=== PATIENT | female | born 1935 | race Caucasian/White ===

== ENCOUNTER 2021-04-05 00:53 | Inpatient (IN) | payer MEDICARE, OTHER ==
[2021-04-05] VITALS (11 sets, daily range): BP systolic 125–147; BP diastolic 58–95
[~2021-04-05] VITALS: Ht 152.4 cm; Wt 92.2 kg
[~2021-04-05 00:53] MED LIST: ATOR20TA PO; FURO40TA4 PO; GABA300C18 PO; IBUP-1007 PO; IBUP-1739 PO; INSU100I13 SQ; LOSA-73 PO; METF10007 PO; OMEP20CA16 PO; PIOG30TA41 PO; TIZA-75 PO
[2021-04-05] MEDS ORDERED: FURO-68 PO (01:20)
[2021-04-05] MEDS ORDERED: MEMA10TA PO (01:26)
[2021-04-05] MEDS ORDERED: ATOR40TA59 PO (01:26)
[2021-04-05] MEDS ORDERED: CHOL40002 PO (01:26)
[2021-04-05] MEDS ORDERED: APIX2.5T PO (01:26)
[2021-04-05] MEDS ORDERED: ACET325T21 PO (01:26)
[2021-04-05] MEDS ORDERED: CALC500T31 PO (01:29)
[2021-04-05] MEDS ORDERED: METH5TAB30 PO (01:29)
[2021-04-05] MEDS ORDERED: SITA100T PO (01:29)
[2021-04-05] MEDS ORDERED: DILT240C33 PO (01:29)
[2021-04-05] MEDS ORDERED: IBAN150T20 PO (01:30)
--- NOTE | 2021-04-05 08:52 | PDOC1 ---
History and Physical Date of Service: DOS: DATE: 04/05/21 TIME: 08:51 Chief Complaint: Chief Complain: Shortness of breath History of Present Illness: HPI: History obtained from discussion with the patient and also chart review: 86-year-old female who is brought in by her son mainly because of shortness of breath since waking up this morning. Patient has been feeling that she cannot get enough deep breath for the past week. Patient was actually hospitalized 1 month ago for pneumonia. Patient has not been feeling good in the last month or so. Patient is a poor historian and likely has some dementia and is unsure why she was brought to the hospital. Currently denies any fevers, cough, chest pain or abdominal pain or dysuria or hematuria or diarrhea. Past Medical/Surgical History: PMH/PSH: Past medical history: Atrial fibrillation, CAD, diabetes mellitus type 2, GERD, dyslipidemia, hypertension, pacemaker placement Past surgical history: Hysterectomy Allergies: Allergies: Coded Allergies: influenza virus vacc,specific (Verified Allergy, Intermediate, Rash, 06/02/14) INJECTION SITE AND ARM HAD RED RASH AND SWELLING Sulfa (Sulfonamide Antibiotics) (Verified Adverse Reaction, Intermediate, Nausea and Vomiting, 06/02/14) codeine (Verified Adverse Reaction, Intermediate, Nausea and Vomiting, 06/02/14) Family History: Family History: Reviewed with no relevant findings in the chart Social History: Social History: Former smoker quit 1 year ago Current Medications: Current Medications Active Scripts Active Reported Ibandronate Sodium 150 Mg Tablet 1 Tab PO QMONTH 30 Days Methimazole 5 Mg Tablet 5 Mg PO DAILY Januvia (Sitagliptin Phosphate) 100 Mg Tablet 1 Tab PO DAILY Diltiazem 24Hr Cd (Diltiazem HCl) 240 Mg Cap.er.24h 240 Mg PO DAILY Calcium Carbonate 500 Mg Tablet 1,250 Mg PO DAILY 30 Days Namenda (Memantine Hcl) 10 Mg Tablet 5 Mg PO BID Eliquis (Apixaban) 2.5 Mg Tablet 2.5 Mg PO BID Atorvastatin Calcium 40 Mg Tablet 1 Tab PO DAILY Thera-D (Cholecalciferol (Vitamin D3)) 100 Mcg Tablet 2,000 Units PO DAILY Acetaminophen 325 Mg Tablet 2 Tab PO PRN Q4-6HRS PRN 24 Days Lasix (Furosemide) 40 Mg Tablet 40 Mg PO BID Omeprazole 20 Mg Capsule.dr 20 Mg PO DAILY Gabapentin (Gabapentin) 300 Mg Capsule 300 Mg PO BID ROS: Review of Systems Review of System REVIEW OF SYSTEMS: GENERAL: Denies weakness SKIN: No bruising, hair changes or rashes. EYES: No blurred, double or loss of vision. NOSE AND THROAT: No history of nosebleeds, hoarseness or sore throat. HEART: No history of palpitations, chest pain or shortness of breath on exertion. LUNGS: Denies cough, hemoptysis, wheezing or shortness of breath. GASTROINTESTINAL: Denies changes in appetite, nausea, vomiting, diarrhea or constipation. GENITOURINARY: No history of frequency, urgency, hesitancy or nocturia. NEUROLOGIC: Denies history of numbness, tingling, or tremor. PSYCHIATRIC: No history of panic, anxiety or depression. ENDOCRINE: No history of heat or cold intolerance, polyuria or polydipsia. EXTREMITIES: Denies joint pain, pain on walking or stiffness. Physical Exam: Vital Signs: Vital Signs Date Time Temp Pulse Resp B/P (MAP) Pulse Ox O2 Delivery O2 Flow Rate FiO2 04/05/21 07:57 98.0 137 18 147/78 (101) 93 Nasal Cannula 2.0 98.0 Physcial Exam: General: Well developed, well nourished, no acute distress, well appearing HEENT: Pupils equally round and reactive to light, EOMI, no discharge, normal conjunctiva Neck: Supple, no nuchal rigidity, no JVD, trachea midline, no tenderness Cardiac: RRR, no murmurs, no gallops, no rubs Chest/Lungs: CTAB, no wheeze, no rhonchi, no crackles Abdomen: soft, non-distended, no guarding, no peritoneal signs, non-tender Back: No tenderness Extremities: no edema, pulses intact, non-tender,capillary refill <3 sec bilateral upper and lower extremities, Neuro: Alert and oriented x 4, no focal deficits, normal speech Labs: Labs: Recent labs reviewed Images: Images Chest x-ray shows diffuse lower lobe infiltrate and small pleural effusions Assessment/Plan Assessment/Plan Acute lower lobe pneumonia, possible gram-negative organisms Atrial fibrillation, currently in RVR continue with p.o. diltiazem Failure to thrive Morbid obesity Diabetes mellitus type 2 GERD Hypertension Admit to hospitalist service for further management Continue empiric IV antibiotics Pending Legionella urine antigen and MRSA screen Pending TTE Pending TSH Continue telemetry monitoring PT OT modalities Eliquis for DVT prophylaxis Protonix GI prophylaxis ADA diet CODE STATUS full Discussed with RN and SW Disposition inpatient management as above DPOA: Son Justifications for Admission Other Justification CASE CROOKS MD Apr 05, 2021 08:52
--- NOTE | 2021-04-05 11:32 | NUR ---
SS following for discharge planning. SS reviewed pt chart and discussed with pt RN. Pt is from home with son and is currently requiring oxygen at two liters nasal canula. COVID19 test pending. Pt has home oxygen. Per family, pt is W/C bound at home. Wound care consulted. SS will continue to follow for discharge planning. Addendum: 04/05/21 at 1341 by HERMINIA BERNAL SS Pt current on services with [facility].
[2021-04-05] MEDS ORDERED: DEXTROSE 50% 25 GM / 50ML DISP.SYRIN. IV PRN ×2 (12:30→12:45)
[2021-04-05] MEDS ORDERED: PROCHLORPERAZINE 10 MG/2 ML VIAL. IV PRN (12:45)
[2021-04-05] MEDS ORDERED: ONDANSETRON PF 4 MG/2 ML VIAL. IVP PRN (12:45)
[2021-04-05] MEDS ORDERED: LORazepam 0.5 MG TABLET PO PRN (12:45)
[2021-04-05] MEDS ORDERED: diphenhydrAMINE HCL 25 MG CAPSULE PO PRN ×2 (12:45)
[2021-04-05] MEDS ORDERED: diphenhydrAMINE 50 MG/ML VIAL IVP PRN (12:45)
[2021-04-05] MEDS ORDERED: ZOLPIDEM 5 MG TABLET. PO PRN (12:45)
[2021-04-05] MEDS ORDERED: SENNOSIDES 8.6 MG TABLET PO PRN (12:45)
[2021-04-05] MEDS ORDERED: ACETAMINOPHEN 325 MG TABLET. PO PRN (12:45)
[2021-04-05] MEDS ORDERED: DOCUSATE SODIUM 100 MG CAPSULE. PO PRN (12:45)
[2021-04-05] MEDS: cefTRIAXone IV Push 1 GM VIAL. IVP SCH (13:39)
[2021-04-05] MEDS ORDERED: FUROSEMIDE 40 MG/4 ML VIAL. IVP ONE (14:45)
[2021-04-05] MEDS: dilTIAZem HCL 125 MG in IV DEXTROSE 5% 100ML 100 ML IV PRN (17:10)
[2021-04-05] MEDS: INSULIN LISPRO 300 UNITS/3 ML VIAL. SQ SCH (17:26)
[2021-04-05] MEDS: APIXABAN 2.5 MG TABLET. PO SCH (20:51)
[2021-04-05] MEDS: GABAPENTIN 300 MG CAPSULE. PO SCH (20:51)
[2021-04-05] MEDS: DOXYCYCLINE HYCLATE 100 MG TABLET PO SCH (20:51)
[2021-04-06] VITALS (12 sets, daily range): BP systolic 104–148; BP diastolic 59–105
[2021-04-06] MEDS: dilTIAZem HCL 125 MG in IV DEXTROSE 5% 100ML 100 ML IV PRN ×2 (02:10→13:07)
[2021-04-06 04:28] LABS: BASO % 0 % (0-3); EOS % 0 % (0-3); HEMATOCRIT 33.4 % (36.0-47.0); HEMOGLOBIN 10.6 g/dL (12.0-15.5); LYMPH # 0.8 x10^3/uL (1.0-4.8); LYMPH % 8 % (24-48); MEAN CORPUSCULAR HEMOGLOBIN 29 pg (25-35); MEAN CORPUSCULAR HGB CONC 32 g/dL (31-37); MEAN CORPUSCULAR VOLUME 91 fL (79-100); MONO # 0.6 x10^3/uL (0.0-1.1); MONO % 7 % (0-9); NEUT # 8.2 x10^3/uL (1.8-7.7); NEUT % 85 % (31-73); PLATELET COUNT 255 x10^3/uL (140-400); RED BLOOD COUNT 3.67 x10^6/uL (3.50-5.40); RED CELL DISTRIBUTION WIDTH 14.5 % (11.5-14.5); WHITE BLOOD COUNT 9.6 x10^3/uL (4.0-11.0)
[2021-04-06 04:41] LABS: CALCIUM 8.8 mg/dL (8.5-10.1); CREATININE 1.6 mg/dL (0.6-1.0); GFR 30.6; PHOSPHORUS 3.8 mg/dL (2.6-4.7); POTASSIUM 4.3 mmol/L (3.5-5.1)
[2021-04-06] MEDS: PANTOPRAZOLE 40 MG TABLET.DR. PO SCH (05:40)
[2021-04-06] MEDS: CALCIUM CARBONATE 500 MG TABLET PO SCH (08:29)
[2021-04-06] MEDS: DOXYCYCLINE HYCLATE 100 MG TABLET PO SCH ×2 (08:29→21:16)
[2021-04-06] MEDS: GABAPENTIN 300 MG CAPSULE. PO SCH ×2 (08:29→21:16)
[2021-04-06] MEDS: CHOLECALCIFEROL (VITAMIN D3) 1,000 UNIT TABLET PO SCH (08:29)
[2021-04-06] MEDS: APIXABAN 2.5 MG TABLET. PO SCH ×2 (08:30→21:16)
[2021-04-06] MEDS: INSULIN LISPRO 300 UNITS/3 ML VIAL. SQ SCH ×3 (08:36→17:00)
[2021-04-06] MEDS ORDERED: ATORVASTATIN CALCIUM 40 MG TABLET. PO SCH (09:00)
--- NOTE | 2021-04-06 09:31 | PDOC2 ---
MONICO BENAVIDEZ CHIEF DATA OFFICER 04/06/21 0931: CARDIAC CONSULT DATE OF CONSULT Date of Consult DATE: 04/06/21 TIME: 09:24 REASON FOR CONSULT Reason for Consult: AFIB REFERRING PHYSICIAN Referring Physician: Dr. Ayala SOURCE Source: Chart review, Patient HISTORY OF PRESENT ILLNESS HISTORY OF PRESENT ILLNESS This is an 86 yo female who presented to [facility] secondary to shortness of breath. Was noted in AFIB with RVR, which prompted this consult. Patient unable to tell me what brought her to the hospital. Presently denies any chest pain, palpitations. Is mildly short of breath. No dizziness or diaphoresis. PAST MEDICAL HISTORY Cardiovascular: AFIB, HTN, Hyperlipidemia, Other (SSS) GI: GERD Musculoskeletal: Osteoarthritis Endocrine: Diabetes PAST SURGICAL HISTORY Past Surgical History: Pacemaker, Cholecystectomy, Cataract Removal, Tonsillectomy, Hysterectomy FAMILY HISTORY Family History: Heart Disease SOCIAL HISTORY Smoke: No ALCOHOL: none Drugs: None CURRENT MEDICATIONS CURRENT MEDICATIONS Current Medications Medications (Trade) Dose Ordered Sig/Elena Route PRN Reason Start Time Stop Time Status Last Admin Dose Admin Apixaban (Eliquis) 2.5 mg BID PO 04/05/21 21:00 04/06/21 08:30 Atorvastatin Calcium (Lipitor) 40 mg DAILY PO 04/06/21 09:00 04/06/21 08:29 Calcium Carbonate/ Glycine (Oscal) 1,250 mg DAILY PO 04/06/21 09:00 04/06/21 08:29 Diltiazem HCl (Cardizem 24hr Cd) 240 mg DAILY PO 04/05/21 15:00 04/05/21 14:40 Gabapentin (Neurontin) 300 mg BID PO 04/05/21 21:00 04/06/21 08:29 Vitamin D (Vitamin D3) 2,000 unit DAILY PO 04/06/21 09:00 04/06/21 08:29 Pantoprazole Sodium (Protonix) 40 mg DAILYAC PO 04/06/21 07:30 04/06/21 05:40 Insulin Human Lispro (HumaLOG) 0-5 UNITS TIDWMEALS SQ 04/05/21 17:00 04/06/21 08:36 Ceftriaxone Sodium (Rocephin) 1 gm Q24H IVP 04/05/21 13:00 04/05/21 13:39 Doxycycline Hyclate (Vibra-Tab) 100 mg BID PO 04/05/21 21:00 04/06/21 08:29 Furosemide (Lasix) 40 mg 1X ONCE IVP 04/05/21 14:45 04/05/21 14:46 DC 04/05/21 14:42 Diltiazem HCl 125 mg/Dextrose 125 ml @ 5 mls/hr CONT PRN IV PER PROTOCOL 04/05/21 17:00 04/06/21 02:10 ALLERGIES ALLERGIES: Coded Allergies: influenza virus vacc,specific (Verified Allergy, Intermediate, Rash, 06/02/14) INJECTION SITE AND ARM HAD RED RASH AND SWELLING Sulfa (Sulfonamide Antibiotics) (Verified Adverse Reaction, Intermediate, Nausea and Vomiting, 06/02/14) codeine (Verified Adverse Reaction, Intermediate, Nausea and Vomiting, 06/02/14) ROS Review of System 14 point ROS conducted with pertinent positives noted above in HPI PHYSICAL EXAM General: Alert, Cooperative, No acute distress, Other (oriented to person and place ) Lungs: Other (diminished bases) Heart: Other (AFIB) Abdomen: Soft, Other (obese) Extremities: Other (2+ bilateral LE edema ) Skin: No significant lesion Neuro: Normal speech, Sensation intact Psych/Mental Status: Mood NL, Other (confused ) MUSCULOSKELETAL: Osteoarthritic changes both hands VITALS/I&O VITALS/I&O: Vital Signs Date Time Temp Pulse Resp B/P (MAP) Pulse Ox O2 Delivery O2 Flow Rate FiO2 04/06/21 06:23 114 120/65 (83) 04/06/21 02:59 97.7 18 92 Nasal Cannula 2.0 97.7 I & O 04/05/21 04/05/21 04/06/21 15:00 23:00 07:00 Intake Total 400 ml 100 ml 220 ml Output Total 1200 ml 300 ml Balance 400 ml -1100 ml -80 ml LABS Lab: Laboratory Tests Test 04/05/21 11:37 04/05/21 13:33 04/05/21 16:35 04/05/21 20:49 Glucose (Fingerstick) 222 mg/dL (70-99) H 202 mg/dL (70-99) H 190 mg/dL (70-99) H Thyroid Stimulating Hormone (TSH) 0.592 uIU/mL (0.358-3.74) Test 04/06/21 03:05 04/06/21 07:28 White Blood Count 9.6 x10^3/uL (4.0-11.0) Red Blood Count 3.67 x10^6/uL (3.50-5.40) Hemoglobin 10.6 g/dL (12.0-15.5) L Hematocrit 33.4 % (36.0-47.0) L Mean Corpuscular Volume 91 fL (79-100) Mean Corpuscular Hemoglobin 29 pg (25-35) Mean Corpuscular Hemoglobin Concent 32 g/dL (31-37) Red Cell Distribution Width 14.5 % (11.5-14.5) Platelet Count 255 x10^3/uL (140-400) Neutrophils (%) (Auto) 85 % (31-73) H Lymphocytes (%) (Auto) 8 % (24-48) L Monocytes (%) (Auto) 7 % (0-9) Eosinophils (%) (Auto) 0 % (0-3) Basophils (%) (Auto) 0 % (0-3) Neutrophils # (Auto) 8.2 x10^3/uL (1.8-7.7) H Lymphocytes # (Auto) 0.8 x10^3/uL (1.0-4.8) L Monocytes # (Auto) 0.6 x10^3/uL (0.0-1.1) Eosinophils # (Auto) 0.0 x10^3/uL (0.0-0.7) Basophils # (Auto) 0.0 x10^3/uL (0.0-0.2) Sodium Level 139 mmol/L (136-145) Potassium Level 4.3 mmol/L (3.5-5.1) Chloride Level 99 mmol/L (98-107) Carbon Dioxide Level 33 mmol/L (21-32) H Anion Gap 7 (6-14) Blood Urea Nitrogen 41 mg/dL (7-20) H Creatinine 1.6 mg/dL (0.6-1.0) H Estimated GFR (Cockcroft-Gault) 30.6 Glucose Level 196 mg/dL (70-99) H Calcium Level 8.8 mg/dL (8.5-10.1) Phosphorus Level 3.8 mg/dL (2.6-4.7) Magnesium Level 2.0 mg/dL (1.8-2.4) Glucose (Fingerstick) 197 mg/dL (70-99) H Laboratory Tests 04/06/21 03:05 Laboratory Tests 04/06/21 03:05 ASSESSMENT/PLAN ASSESSMENT/PLAN 1. Acute respiratory failure with CHF, RVR 2. Acute on chronic probable diastolic CHF 3. PAFIB with RVR; on Cardizem gtt for rate control and Eliquis for stroke prophylaxis. Follows with [facility] cardiology. 4. SSS s/p PPM (Medtronic). intermittent v-pacing 6. Hypertension; controlled 7. Hyperlipidemia; statin 8. MACK on CKD 9. Diabetes, II 10. Hyperthyroidism; on methimazole. 12. Dementia Recommendations Metoprolol IV x1 now Resume oral Cardizem gtt Eliquis for stroke prophylaxis Diuresis with IV Lasix. Monitor renal function closely YOU MOSES MD 04/06/21 4929: CARDIAC CONSULT ASSESSMENT/PLAN ASSESSMENT/PLAN Patient seen and examined She reports feeling better today. I agree with our nurse practitioners assessment and plan. Acute respiratory failure with CHF, RVR Acute on chronic probable diastolic CHF. Continuing Lasix treatment. Monitoring renal function. PAFIB with RVR; on Cardizem gtt for rate control and Eliquis for stroke prophylaxis. Follows with [facility] cardiology. SSS s/p PPM (Medtronic). intermittent v-pacing Hypertension; controlled Hyperlipidemia; statin MACK on CKD. Monitoring lab. Diabetes, II Hyperthyroidism; on methimazole. Dementia MONICO BENAVIDEZ APRN Apr 06, 2021 09:31 YOU MOSES MD Apr 06, 2021 16:49
--- NOTE | 2021-04-06 10:33 | PDOC ---
[employer] PROGRESS NOTE Date of Service DOS: DATE: 04/06/21 TIME: 10:32 Chief Complaint Chief Complaint Acute respiratory failure with CHF, RVR 2. Acute on chronic probable diastolic CHF 3. PAFIB with RVR; on Cardizem gtt for rate control. Eliquis for stroke prophylaxis. Follows with [facility] cardiology. 4. SSS s/p PPM (Medtronic). intermittent v-pacing 6. Hypertension; controlled 7. Hyperlipidemia; statin 8. MACK on CKD 9. Diabetes, II 10. Hyperthyroidism; on methimazole. 12. Dementia History of Present Illness History of Present Illness cont current Vitals/I&O Vitals/I&O: Vital Signs Date Time Temp Pulse Resp B/P (MAP) Pulse Ox O2 Delivery O2 Flow Rate FiO2 04/06/21 08:00 Nasal Cannula 2.0 04/06/21 06:23 114 120/65 (83) 04/06/21 02:59 97.7 18 92 97.7 I & O 04/05/21 04/05/21 04/06/21 15:00 23:00 07:00 Intake Total 400 ml 100 ml 220 ml Output Total 1200 ml 300 ml Balance 400 ml -1100 ml -80 ml Physical Exam General: Alert Heart: Normal S1, Normal S2 Extremities: No clubbing Labs Labs: Laboratory Tests Test 04/05/21 11:37 04/05/21 13:33 04/05/21 16:35 04/05/21 20:49 Glucose (Fingerstick) 222 mg/dL (70-99) 202 mg/dL (70-99) 190 mg/dL (70-99) Thyroid Stimulating Hormone (TSH) 0.592 uIU/mL (0.358-3.74) Test 04/06/21 03:05 04/06/21 07:28 White Blood Count 9.6 x10^3/uL (4.0-11.0) Red Blood Count 3.67 x10^6/uL (3.50-5.40) Hemoglobin 10.6 g/dL (12.0-15.5) Hematocrit 33.4 % (36.0-47.0) Mean Corpuscular Volume 91 fL (79-100) Mean Corpuscular Hemoglobin 29 pg (25-35) Mean Corpuscular Hemoglobin Concent 32 g/dL (31-37) Red Cell Distribution Width 14.5 % (11.5-14.5) Platelet Count 255 x10^3/uL (140-400) Neutrophils (%) (Auto) 85 % (31-73) Lymphocytes (%) (Auto) 8 % (24-48) Monocytes (%) (Auto) 7 % (0-9) Eosinophils (%) (Auto) 0 % (0-3) Basophils (%) (Auto) 0 % (0-3) Neutrophils # (Auto) 8.2 x10^3/uL (1.8-7.7) Lymphocytes # (Auto) 0.8 x10^3/uL (1.0-4.8) Monocytes # (Auto) 0.6 x10^3/uL (0.0-1.1) Eosinophils # (Auto) 0.0 x10^3/uL (0.0-0.7) Basophils # (Auto) 0.0 x10^3/uL (0.0-0.2) Sodium Level 139 mmol/L (136-145) Potassium Level 4.3 mmol/L (3.5-5.1) Chloride Level 99 mmol/L (98-107) Carbon Dioxide Level 33 mmol/L (21-32) Anion Gap 7 (6-14) Blood Urea Nitrogen 41 mg/dL (7-20) Creatinine 1.6 mg/dL (0.6-1.0) Estimated GFR (Cockcroft-Gault) 30.6 Glucose Level 196 mg/dL (70-99) Calcium Level 8.8 mg/dL (8.5-10.1) Phosphorus Level 3.8 mg/dL (2.6-4.7) Magnesium Level 2.0 mg/dL (1.8-2.4) Glucose (Fingerstick) 197 mg/dL (70-99) Comment Review of Relevant I have reviewed the following items ian (where applicable) has been applied. Medications: Current Medications Medications (Trade) Dose Ordered Sig/Elena Route PRN Reason Start Time Stop Time Status Last Admin Dose Admin Apixaban (Eliquis) 2.5 mg BID PO 04/05/21 21:00 04/06/21 08:30 Atorvastatin Calcium (Lipitor) 40 mg DAILY PO 04/06/21 09:00 04/06/21 08:29 Calcium Carbonate/ Glycine (Oscal) 1,250 mg DAILY PO 04/06/21 09:00 04/06/21 08:29 Diltiazem HCl (Cardizem 24hr Cd) 240 mg DAILY PO 04/05/21 15:00 04/05/21 14:40 Gabapentin (Neurontin) 300 mg BID PO 04/05/21 21:00 04/06/21 08:29 Vitamin D (Vitamin D3) 2,000 unit DAILY PO 04/06/21 09:00 04/06/21 08:29 Pantoprazole Sodium (Protonix) 40 mg DAILYAC PO 04/06/21 07:30 04/06/21 05:40 Insulin Human Lispro (HumaLOG) 0-5 UNITS TIDWMEALS SQ 04/05/21 17:00 04/06/21 08:36 Ceftriaxone Sodium (Rocephin) 1 gm Q24H IVP 04/05/21 13:00 04/05/21 13:39 Doxycycline Hyclate (Vibra-Tab) 100 mg BID PO 04/05/21 21:00 04/06/21 08:29 Furosemide (Lasix) 40 mg 1X ONCE IVP 04/05/21 14:45 04/05/21 14:46 DC 04/05/21 14:42 Diltiazem HCl 125 mg/Dextrose 125 ml @ 5 mls/hr CONT PRN IV PER PROTOCOL 04/05/21 17:00 04/06/21 02:10 Justifications for Admission Other Justification Pneumonia and A. fib RVR RAQUEL CRISTOBAL MD Apr 06, 2021 10:33
--- NOTE | 2021-04-06 13:27 | NUR ---
SS following up with discharge planning. SS reviewed pt chart and discussed with pt RN. Pt is currently requiring oxygen at two liters nasal canula. COVID19 negative at [facility]. Pt on IV Rocephin. Cardizem drip. PT/OT recommended prison unit. SS met with pt and spoke with pt's family via phone to discuss discharge planning and prison unit. Pt's family stated #1 preference is [facility], ; fax [phone]. Referral phoned and faxed to [facility]. Pt's family encouraged to come up with other facility choices as well in the event bed is not available at [facility]. SS will continue to follow for discharge planning. Addendum: 04/06/21 at 1613 by HERMINIA BERNAL SS Pt accepted at [facility]. Bed available tomorrow.
[2021-04-06] MEDS: cefTRIAXone IV Push 1 GM VIAL. IVP SCH (14:37)
--- NOTE | 2021-04-06 14:37 | NUR ---
Wound Care: Patient seen per wound care consult for coccyx wound. Wound is now healed. There are no open wounds at this time. Calazime applied to coccyx for protection. Patient assisted back in chair and chair alarm in place, call light in reach. Wound care will sign off at this time. Please re consult wound care if needed.
[2021-04-06] MEDS ORDERED: METOPROLOL IV PUSH 5 MG/5 ML VIAL. IVP ONE (16:00)
[2021-04-06] MEDS: FUROSEMIDE 40 MG/4 ML VIAL. IVP SCH (17:33)
[2021-04-06] MEDS: POTASSIUM CHLORIDE 20 MEQ TABLET.ER. PO SCH (17:34)
[2021-04-06] MEDS: LACTOBACILLUS RHAMNOSUS GG 1 CAPSULE. PO SCH (21:16)
[2021-04-07 03:00] VITALS: BP 125/64
[2021-04-07] MEDS: PANTOPRAZOLE 40 MG TABLET.DR. PO SCH (06:15)
[2021-04-07 06:40] LABS: BASO % 0 % (0-3); EOS % 0 % (0-3); HEMOGLOBIN 10.3 g/dL (12.0-15.5); LYMPH # 1.5 x10^3/uL (1.0-4.8); LYMPH % 14 % (24-48); MEAN CORPUSCULAR HEMOGLOBIN 29 pg (25-35); MEAN CORPUSCULAR HGB CONC 31 g/dL (31-37); MEAN CORPUSCULAR VOLUME 91 fL (79-100); MONO % 9 % (0-9); NEUT # 8.4 x10^3/uL (1.8-7.7); NEUT % 77 % (31-73); PLATELET COUNT 273 x10^3/uL (140-400); RED BLOOD COUNT 3.61 x10^6/uL (3.50-5.40); RED CELL DISTRIBUTION WIDTH 14.6 % (11.5-14.5); WHITE BLOOD COUNT 10.9 x10^3/uL (4.0-11.0)
[2021-04-07 07:00] VITALS: BP 131/72
[2021-04-07 07:04] LABS: CREATININE 2.4 mg/dL (0.6-1.0); GFR 19.2; MAGNESIUM 2.1 mg/dL (1.8-2.4); POTASSIUM 5.1 mmol/L (3.5-5.1)
[2021-04-07] MEDS: DOXYCYCLINE HYCLATE 100 MG TABLET PO SCH ×2 (09:00→20:18)
[2021-04-07] MEDS: FUROSEMIDE 40 MG/4 ML VIAL. IVP SCH (09:05)
[2021-04-07] MEDS: CHOLECALCIFEROL (VITAMIN D3) 1,000 UNIT TABLET PO SCH (09:10)
[2021-04-07] MEDS: LACTOBACILLUS RHAMNOSUS GG 1 CAPSULE. PO SCH ×2 (09:10→20:18)
[2021-04-07] MEDS: INSULIN LISPRO 300 UNITS/3 ML VIAL. SQ SCH ×3 (09:10→16:38)
[2021-04-07] MEDS: APIXABAN 2.5 MG TABLET. PO SCH ×2 (09:10→20:18)
[2021-04-07] MEDS: GABAPENTIN 300 MG CAPSULE. PO SCH ×2 (09:10→20:19)
[2021-04-07] MEDS: POTASSIUM CHLORIDE 20 MEQ TABLET.ER. PO SCH (09:10)
[2021-04-07] MEDS: CALCIUM CARBONATE 500 MG TABLET PO SCH (09:11)
--- NOTE | 2021-04-07 10:45 | PDOC ---
CARDIO Progress Notes Date and Time Date of Service 04/07/21 Time of Evaluation 1020 Subjective Subjective: No Chest Pain, No shortness of breath, No Palpitations Vitals Vitals Vital Signs Date Time Temp Pulse Resp B/P (MAP) Pulse Ox O2 Delivery O2 Flow Rate FiO2 04/07/21 09:04 101 131/72 04/07/21 08:00 Nasal Cannula 2.0 04/07/21 07:00 97.4 19 92 97.4 Weight Weight [ ] Input and Output Intake and Output Intake and Output 04/07/21 07:00 Intake Total 820 ml Output Total 150 ml Balance 670 ml Intake Oral 820 ml Output Urine Total 150 ml # Bowel Movements 1 Laboratory Labs Laboratory Tests Test 04/06/21 11:46 04/06/21 16:28 04/06/21 21:15 04/07/21 04:55 Glucose (Fingerstick) 187 mg/dL (70-99) 207 mg/dL (70-99) 195 mg/dL (70-99) White Blood Count 10.9 x10^3/uL (4.0-11.0) Red Blood Count 3.61 x10^6/uL (3.50-5.40) Hemoglobin 10.3 g/dL (12.0-15.5) Hematocrit 33.0 % (36.0-47.0) Mean Corpuscular Volume 91 fL (79-100) Mean Corpuscular Hemoglobin 29 pg (25-35) Mean Corpuscular Hemoglobin Concent 31 g/dL (31-37) Red Cell Distribution Width 14.6 % (11.5-14.5) Platelet Count 273 x10^3/uL (140-400) Neutrophils (%) (Auto) 77 % (31-73) Lymphocytes (%) (Auto) 14 % (24-48) Monocytes (%) (Auto) 9 % (0-9) Eosinophils (%) (Auto) 0 % (0-3) Basophils (%) (Auto) 0 % (0-3) Neutrophils # (Auto) 8.4 x10^3/uL (1.8-7.7) Lymphocytes # (Auto) 1.5 x10^3/uL (1.0-4.8) Monocytes # (Auto) 1.0 x10^3/uL (0.0-1.1) Eosinophils # (Auto) 0.0 x10^3/uL (0.0-0.7) Basophils # (Auto) 0.0 x10^3/uL (0.0-0.2) Sodium Level 141 mmol/L (136-145) Potassium Level 5.1 mmol/L (3.5-5.1) Chloride Level 99 mmol/L (98-107) Carbon Dioxide Level 31 mmol/L (21-32) Anion Gap 11 (6-14) Blood Urea Nitrogen 55 mg/dL (7-20) Creatinine 2.4 mg/dL (0.6-1.0) Estimated GFR (Cockcroft-Gault) 19.2 Glucose Level 195 mg/dL (70-99) Calcium Level 9.0 mg/dL (8.5-10.1) Magnesium Level 2.1 mg/dL (1.8-2.4) Test 04/07/21 07:20 Glucose (Fingerstick) 205 mg/dL (70-99) Physical Exam HEENT: Neck Supple W Full Motion Chest: Symmetric LUNGS: Clear to Auscultation Heart: irregularly irregular (AFIB) Abdomen: Other (obese) Extremities: Other (1+ bilateral LE edema ) Neurology: alert, follow commands Assessment Assessment 1. Acute respiratory failure with CHF, RVR 2. Acute on chronic probable diastolic CHF; improved s/p IV diuresis 3. PAFIB with RVR; on Cardizem gtt for rate control and Eliquis for stroke prophylaxis. Follows with [facility] cardiology. Rate mildly elevated 4. SSS s/p PPM (Medtronic). intermittent v-pacing 6. Hypertension; controlled 7. Hyperlipidemia; statin 8. MACK on CKD; Cr ^ 2.4 9. Diabetes, II 10. Hyperthyroidism; on methimazole. 12. Dementia Recommendations Continue Cardizem; will increase for better rate control Eliquis for stroke prophylaxis Hold Lasix with increase Cr Agree with gentle hydration Supportive care Justicifation of Admission Dx: Justifications for Admission: Justification of Admission Dx: Yes CHF: Cardiac Arrhythmias MONICO BENAVIDEZ APRN Apr 07, 2021 10:45
[2021-04-07 11:00] VITALS: BP 124/70
[2021-04-07] MEDS ORDERED: DOXY100T PO (11:12)
[2021-04-07] MEDS ORDERED: IV NORMAL SALINE 1000ML BAG 1,000 ML IV ONE (11:15)
--- NOTE | 2021-04-07 11:15 | SNU/HH DC ---
DISCHARGE ORDERS DISCHARGE INFORMATION: DISCHARGE DATE: Apr 07, 2021 FINAL DIAGNOSIS 1. Acute respiratory failure with CHF, RVR 2. Acute on chronic probable diastolic CHF 3. PAFIB with RVR; on Cardizem gtt for rate control. Eliquis for stroke prophylaxis. Follows with [facility] cardiology. 4. SSS s/p PPM (Medtronic). intermittent v-pacing 6. Hypertension; controlled 7. Hyperlipidemia; statin 8. MACK on CKD 9. Diabetes, II 10. Hyperthyroidism; on methimazole. 12. Dementia CONDITION ON DISCHARGE: Stable CODE STATUS: Code Status: Full ALF: SNF STAY <30 DAYS: Yes POST DISCHARGE ORDERS: ACTIVITY ORDERS: Other, see below WEIGHT BEARING STATUS: No restrictions, As tolerated BATHING ORDERS: Shower-keep dressing dry, No Tub Bath until see DIET AFTER DISCHARGE: Regular WOUND/INCISION CARE: Ice to area for comfort, Keep wound/cast CDI, Keep wound elevated, Do not change dressing, Other, see below FOLLOW-UP: LAB ORDERS FOR FOLLOW-UP: chem 7, cbc in 5 days, creatinine baselne 1.5 TREATMENT/EQUIPMENT ORDERS: ADAPTIVE EQUIPMENT NEEDED: None RESPIRATORY EQUIPMENT NEEDED: Oxygen Physical Therapy For: Evalulation/Treatment Occupational Therapy For: Evaluation/Treatment DISCHARGE MEDICATIONS: Home Meds Active Scripts Doxycycline Hyclate (DOXYCYCLINE HYCLATE) 100 Mg Tablet, 100 MG PO BID for COPD, #14 TAB Prov:RAQUEL CRISTOBAL MD 04/07/21 Reported Medications Ibandronate Sodium (IBANDRONATE SODIUM) 150 Mg Tablet, 1 TAB PO QMONTH for for 30 Days, #1 TAB 0 Refills 04/05/21 Methimazole (METHIMAZOLE) 5 Mg Tablet, 5 MG PO DAILY for , TAB 04/05/21 Sitagliptin Phosphate (JANUVIA) 100 Mg Tablet, 1 TAB PO DAILY for , #30 TAB 5 Refills 04/05/21 Diltiazem HCl (Diltiazem 24Hr Cd) 240 Mg Cap.er.24h, 240 MG PO DAILY for , CAP.SR 04/05/21 Calcium Carbonate (CALCIUM CARBONATE) 500 Mg Tablet, 1250 MG PO DAILY for for 30 Days, #75 TAB 0 Refills 04/05/21 Memantine Hcl (NAMENDA) 10 Mg Tablet, 5 MG PO BID for , TAB 04/05/21 Apixaban (ELIQUIS) 2.5 Mg Tablet, 2.5 MG PO BID for , TAB 04/05/21 Atorvastatin Calcium (ATORVASTATIN CALCIUM) 40 Mg Tablet, 1 TAB PO DAILY for , #30 TAB 5 Refills 04/05/21 Cholecalciferol (Vitamin D3) (Thera-D) 100 Mcg Tablet, 2000 UNITS PO DAILY for , TAB 04/05/21 Acetaminophen (ACETAMINOPHEN) 325 Mg Tablet, 2 TAB PO PRN Q4-6HRS PRN for pain or fever for 24 Days, #100 TAB 0 Refills 04/05/21 Furosemide (LASIX) 40 Mg Tablet, 40 MG PO BID for , TAB 04/05/21 Omeprazole (OMEPRAZOLE) 20 Mg Capsule.dr, 20 MG PO DAILY, CAP 05/11/14 Gabapentin (GABAPENTIN ) 300 Mg Capsule, 300 MG PO BID, CAP 05/11/14 Discontinued Reported Medications Ibuprofen (IBUPROFEN) 600 Mg Tablet, 600 MG PO BID, TAB 06/01/14 Tizanidine Hcl (TIZANIDINE HCL) 4 Mg Tablet, 2 MG PO HS PRN for MUSCLE SPASMS, TAB 05/11/14 Insulin Glargine,Hum.rec.anlog (LANTUS SOLOSTAR) 100 Unit/1 Ml Insuln.pen, 10 UNIT SQ QHS, ML 05/11/14 Losartan Potassium (LOSARTAN POTASSIUM) 50 Mg Tablet, 50 MG PO DAILY, TAB 05/11/14 Furosemide (FUROSEMIDE) 40 Mg Tablet, 40 MG PO DAILY, TAB 05/11/14 Atorvastatin Calcium (LIPITOR) 20 Mg Tablet, 20 MG PO HS for FOR CHOLESTEROL, TAB 0 Refills 05/11/14 Pioglitazone Hcl (ACTOS) 30 Mg Tablet, 30 MG PO DAILY, TAB 05/11/14 Metformin Hcl (METFORMIN HCL) 1,000 Mg Tablet, 1000 MG PO DAILYWBKFT for ANTI- DIABETIC, TAB 0 Refills 05/11/14 RAQUEL CRISTOBAL MD Apr 07, 2021 11:15
--- NOTE | 2021-04-07 11:18 | PDOC3 ---
Discharge Summary Visit Information Date of Admission: Apr 05, 2021 Date of Discharge: Apr 07, 2021 Final Diagnosis Acute respiratory failure with CHF, RVR 2. Acute on chronic probable diastolic CHF 3. PAFIB with RVR; on Cardizem gtt for rate control. Eliquis for stroke prophylaxis. Follows with [facility] cardiology. 4. SSS s/p PPM (Medtronic). intermittent v-pacing 6. Hypertension; controlled 7. Hyperlipidemia; statin 8. MACK on CKD 9. Diabetes, II 10. Hyperthyroidism; on methimazole. 12. Dementia Brief Hospital Course Allergies Allergies Coded Allergies Type Severity Reaction Last Updated Verified influenza virus vacc,specific Allergy Intermediate Rash 06/02/14 Yes Sulfa (Sulfonamide Antibiotics) Adverse Reaction Intermediate Nausea and Vomiting 06/02/14 Yes codeine Adverse Reaction Intermediate Nausea and Vomiting 06/02/14 Yes Vital Signs Vital Signs Date Time Temp Pulse Resp B/P (MAP) Pulse Ox O2 Delivery O2 Flow Rate FiO2 04/07/21 09:04 101 131/72 04/07/21 08:00 Nasal Cannula 2.0 04/07/21 07:00 97.4 19 92 97.4 Lab Results Laboratory Tests Test 04/05/21 11:37 04/05/21 13:33 04/05/21 16:35 04/05/21 17:15 Glucose (Fingerstick) 222 mg/dL (70-99) 202 mg/dL (70-99) Thyroid Stimulating Hormone (TSH) 0.592 uIU/mL (0.358-3.74) Nasal Screen MRSA (PCR) Negative (NEGATIVE) Test 04/05/21 20:49 04/06/21 03:05 04/06/21 07:28 04/06/21 11:46 Glucose (Fingerstick) 190 mg/dL (70-99) 197 mg/dL (70-99) 187 mg/dL (70-99) White Blood Count 9.6 x10^3/uL (4.0-11.0) Red Blood Count 3.67 x10^6/uL (3.50-5.40) Hemoglobin 10.6 g/dL (12.0-15.5) Hematocrit 33.4 % (36.0-47.0) Mean Corpuscular Volume 91 fL (79-100) Mean Corpuscular Hemoglobin 29 pg (25-35) Mean Corpuscular Hemoglobin Concent 32 g/dL (31-37) Red Cell Distribution Width 14.5 % (11.5-14.5) Platelet Count 255 x10^3/uL (140-400) Neutrophils (%) (Auto) 85 % (31-73) Lymphocytes (%) (Auto) 8 % (24-48) Monocytes (%) (Auto) 7 % (0-9) Eosinophils (%) (Auto) 0 % (0-3) Basophils (%) (Auto) 0 % (0-3) Neutrophils # (Auto) 8.2 x10^3/uL (1.8-7.7) Lymphocytes # (Auto) 0.8 x10^3/uL (1.0-4.8) Monocytes # (Auto) 0.6 x10^3/uL (0.0-1.1) Eosinophils # (Auto) 0.0 x10^3/uL (0.0-0.7) Basophils # (Auto) 0.0 x10^3/uL (0.0-0.2) Sodium Level 139 mmol/L (136-145) Potassium Level 4.3 mmol/L (3.5-5.1) Chloride Level 99 mmol/L (98-107) Carbon Dioxide Level 33 mmol/L (21-32) Anion Gap 7 (6-14) Blood Urea Nitrogen 41 mg/dL (7-20) Creatinine 1.6 mg/dL (0.6-1.0) Estimated GFR (Cockcroft-Gault) 30.6 Glucose Level 196 mg/dL (70-99) Calcium Level 8.8 mg/dL (8.5-10.1) Phosphorus Level 3.8 mg/dL (2.6-4.7) Magnesium Level 2.0 mg/dL (1.8-2.4) Test 04/06/21 16:28 04/06/21 21:15 04/07/21 04:55 04/07/21 07:20 Glucose (Fingerstick) 207 mg/dL (70-99) 195 mg/dL (70-99) 205 mg/dL (70-99) White Blood Count 10.9 x10^3/uL (4.0-11.0) Red Blood Count 3.61 x10^6/uL (3.50-5.40) Hemoglobin 10.3 g/dL (12.0-15.5) Hematocrit 33.0 % (36.0-47.0) Mean Corpuscular Volume 91 fL (79-100) Mean Corpuscular Hemoglobin 29 pg (25-35) Mean Corpuscular Hemoglobin Concent 31 g/dL (31-37) Red Cell Distribution Width 14.6 % (11.5-14.5) Platelet Count 273 x10^3/uL (140-400) Neutrophils (%) (Auto) 77 % (31-73) Lymphocytes (%) (Auto) 14 % (24-48) Monocytes (%) (Auto) 9 % (0-9) Eosinophils (%) (Auto) 0 % (0-3) Basophils (%) (Auto) 0 % (0-3) Neutrophils # (Auto) 8.4 x10^3/uL (1.8-7.7) Lymphocytes # (Auto) 1.5 x10^3/uL (1.0-4.8) Monocytes # (Auto) 1.0 x10^3/uL (0.0-1.1) Eosinophils # (Auto) 0.0 x10^3/uL (0.0-0.7) Basophils # (Auto) 0.0 x10^3/uL (0.0-0.2) Sodium Level 141 mmol/L (136-145) Potassium Level 5.1 mmol/L (3.5-5.1) Chloride Level 99 mmol/L (98-107) Carbon Dioxide Level 31 mmol/L (21-32) Anion Gap 11 (6-14) Blood Urea Nitrogen 55 mg/dL (7-20) Creatinine 2.4 mg/dL (0.6-1.0) Estimated GFR (Cockcroft-Gault) 19.2 Glucose Level 195 mg/dL (70-99) Calcium Level 9.0 mg/dL (8.5-10.1) Magnesium Level 2.1 mg/dL (1.8-2.4) Test 04/07/21 10:48 Glucose (Fingerstick) 209 mg/dL (70-99) Laboratory Tests Test 04/06/21 11:46 04/06/21 16:28 04/06/21 21:15 2/24/22 04:55 Glucose (Fingerstick) 187 mg/dL (70-99) 207 mg/dL (70-99) 195 mg/dL (70-99) White Blood Count 10.9 x10^3/uL (4.0-11.0) Red Blood Count 3.61 x10^6/uL (3.50-5.40) Hemoglobin 10.3 g/dL (12.0-15.5) Hematocrit 33.0 % (36.0-47.0) Mean Corpuscular Volume 91 fL (79-100) Mean Corpuscular Hemoglobin 29 pg (25-35) Mean Corpuscular Hemoglobin Concent 31 g/dL (31-37) Red Cell Distribution Width 14.6 % (11.5-14.5) Platelet Count 273 x10^3/uL (140-400) Neutrophils (%) (Auto) 77 % (31-73) Lymphocytes (%) (Auto) 14 % (24-48) Monocytes (%) (Auto) 9 % (0-9) Eosinophils (%) (Auto) 0 % (0-3) Basophils (%) (Auto) 0 % (0-3) Neutrophils # (Auto) 8.4 x10^3/uL (1.8-7.7) Lymphocytes # (Auto) 1.5 x10^3/uL (1.0-4.8) Monocytes # (Auto) 1.0 x10^3/uL (0.0-1.1) Eosinophils # (Auto) 0.0 x10^3/uL (0.0-0.7) Basophils # (Auto) 0.0 x10^3/uL (0.0-0.2) Sodium Level 141 mmol/L (136-145) Potassium Level 5.1 mmol/L (3.5-5.1) Chloride Level 99 mmol/L (98-107) Carbon Dioxide Level 31 mmol/L (21-32) Anion Gap 11 (6-14) Blood Urea Nitrogen 55 mg/dL (7-20) Creatinine 2.4 mg/dL (0.6-1.0) Estimated GFR (Cockcroft-Gault) 19.2 Glucose Level 195 mg/dL (70-99) Calcium Level 9.0 mg/dL (8.5-10.1) Magnesium Level 2.1 mg/dL (1.8-2.4) Test 04/07/21 07:20 04/07/21 10:48 Glucose (Fingerstick) 205 mg/dL (70-99) 209 mg/dL (70-99) Brief Hospital Course Ms. Bae is a 86 old famale, demented, admit with afib RVR Discharge Information Condition at Discharge: Improved Follow Up: Weeks Disposition/Orders: D/C to Another Facility Scheduled Apixaban (Eliquis) 2.5 Mg Tablet, 2.5 MG PO BID for , (Reported) Entered as Reported by: Cesar Pugh on 04/05/21125 Last Action: Continued on 04/05/211146 by CASE CROOKS MD Atorvastatin Calcium (Atorvastatin Calcium) 40 Mg Tablet, 1 TAB PO DAILY for , #30 Ref 5 (Reported) Entered as Reported by: Cesar Pugh on 04/05/21125 Last Action: Continued on 04/05/211146 by CASE CROOKS MD Calcium Carbonate (Calcium Carbonate) 500 Mg Tablet, 1,250 MG PO DAILY for for 30 Days, #75 Ref 0 (Reported) Entered as Reported by: Cesar Pugh on 04/05/21128 Last Action: Continued on 04/05/211146 by CASE CROOKS MD Cholecalciferol (Vitamin D3) (Thera-D) 100 Mcg Tablet, 2,000 UNITS PO DAILY for , (Reported) Entered as Reported by: Cesar Pugh on 04/05/21125 Last Action: Converted on 04/05/211146 by CASE CROOKS MD Diltiazem HCl (Diltiazem 24Hr Cd) 240 Mg Cap.er.24h, 240 MG PO DAILY for , (Reported) Entered as Reported by: Cesar Pugh on 04/05/21128 Last Action: Continued on 04/05/211146 by CASE CROOKS MD Doxycycline Hyclate (Doxycycline Hyclate) 100 Mg Tablet, 100 MG PO BID for COPD, #14 Prescribed by: RAQUEL CRISTOBAL on 04/07/21 1112 Furosemide (Lasix) 40 Mg Tablet, 40 MG PO BID for , (Reported) Entered as Reported by: Cesar Pugh on 04/05/21119 Last Action: HELD on 04/05/211146 by CASE CROOKS MD Gabapentin (Gabapentin ) 300 Mg Capsule, 300 MG PO BID, (Reported) Entered as Reported by: HAILE WEBBER on 05/11/14 0847 Last Action: Continued on 04/05/211146 by CASE CROOKS MD Ibandronate Sodium (Ibandronate Sodium) 150 Mg Tablet, 1 TAB PO QMONTH for for 30 Days, #1 Ref 0 (Reported) Entered as Reported by: Cesar Pugh on 04/05/21129 Last Action: New Order on 04/05/21129 by Cesar Pugh Memantine Hcl (Namenda) 10 Mg Tablet, 5 MG PO BID for , (Reported) Entered as Reported by: Cesar Pugh on 04/05/21125 Last Action: HELD on 04/05/211146 by CASE CROOKS MD Methimazole (Methimazole) 5 Mg Tablet, 5 MG PO DAILY for , (Reported) Entered as Reported by: Cesar Pugh on 04/05/21128 Last Action: New Order on 04/05/21128 by Cesar Pugh Omeprazole (Omeprazole) 20 Mg Capsule.dr, 20 MG PO DAILY, (Reported) Entered as Reported by: HAILE WEBBER on 05/11/14 0850 Last Action: Converted on 04/05/211146 by CASE CROOKS MD Sitagliptin Phosphate (Januvia) 100 Mg Tablet, 1 TAB PO DAILY for , #30 Ref 5 (Reported) Entered as Reported by: Cesar Pugh on 04/05/21128 Last Action: New Order on 04/05/21128 by Cesar Pugh Scheduled PRN Acetaminophen (Acetaminophen) 325 Mg Tablet, 2 TAB PO PRN Q4-6HRS PRN for pain or fever for 24 Days, #100 Ref 0 (Reported) Entered as Reported by: Cesar Pugh on 04/05/21125 Last Action: New Order on 04/05/21125 by Cesar Pugh Discontinued Medications Atorvastatin Calcium (Lipitor) 20 Mg Tablet, 20 MG PO HS for FOR CHOLESTEROL, Ref 0 (Reported) Entered as Reported by: HALIE WEBBER on 05/11/14 0850 Last Action: Discontinued on 04/05/21119 by Cesar Pugh Furosemide (Furosemide) 40 Mg Tablet, 40 MG PO DAILY, (Reported) Entered as Reported by: HAILE WEBBER on 05/11/14 0850 Last Action: Discontinued on 04/05/21119 by Cesar Pugh Ibuprofen (Ibuprofen) 600 Mg Tablet, 600 MG PO BID, (Reported) Entered as Reported by: LUIZA ZAMAN on 06/01/14821 Last Action: Discontinued on 04/05/21119 by Cesar Pugh Insulin Glargine,Hum.rec.anlog (Lantus Solostar) 100 Unit/1 Ml Insuln.pen, 10 UNIT SQ QHS, (Reported) Entered as Reported by: HAILE WEBBER on 05/11/14 0854 Last Action: Discontinued on 04/05/21119 by Cesar Pugh Losartan Potassium (Losartan Potassium) 50 Mg Tablet, 50 MG PO DAILY, (Reported) Entered as Reported by: HAILE WEBBER on 05/11/14 0853 Last Action: Discontinued on 04/05/21119 by Cesar Pugh Metformin Hcl (Metformin Hcl) 1,000 Mg Tablet, 1,000 MG PO DAILYWBKFT for ANTI- DIABETIC, Ref 0 (Reported) Entered as Reported by: HAILE WEBBER on 05/11/14 0849 Last Action: Discontinued on 04/05/21119 by Cesar Pugh Pioglitazone Hcl (Actos) 30 Mg Tablet, 30 MG PO DAILY, (Reported) Entered as Reported by: HAILE WEBBER on 05/11/14 0850 Last Action: Discontinued on 04/05/21119 by Cesar Pugh Tizanidine Hcl (Tizanidine Hcl) 4 Mg Tablet, 2 MG PO HS PRN for MUSCLE SPASMS, (Reported) Entered as Reported by: HAILE WEBBER on 05/11/14 1509 Last Action: Discontinued on 04/05/21119 by Cesar Pugh Patient Instructions Patient Instructions f/u cardio labs in 5 days, review renal fxn time 37 min Justicifation of Admission Dx: Justifications for Admission: Justification of Admission Dx: Yes RAQUEL CRISTOBAL MD Apr 07, 2021 11:18
--- NOTE | 2021-04-07 12:04 | RAD ---
EXAM: XR CHEST 2V 04/07/2021 10:08 AM CLINICAL INDICATION: CHF COMPARISON: Chest radiograph 04/04/2019 to TECHNIQUE: PA and lateral views of chest FINDINGS: Unchanged pacemaker. Spinal stimulator device is noted. Heart remains unchanged. The lungs are hypoexpanded. There are unchanged mild diffuse interstitial opacities and more confluent bibasila r airspace opacities. Small pleural effusions. No pneumothorax. No acute osseous abnormality. IMPRESSION: 1. Unchanged bilateral opacities which may be due to pneumonia and/or pulmonary edema. 2. Unchanged small pleural effusions. Electronically signed by: Justyna Vallejo MD (04/07/2021 12:02 PM) [id number]
--- NOTE | 2021-04-07 12:12 | CARD ---
MR#: [id number] Date of Study: 04/06/2021 Ordering Physician: CASE CROOKS, Referring Physician: CASE CROOKS, Tech: Sonia Finnegan, [facility] APPROVED REPORT EXAM: Two-dimensional and M-mode echocardiogram with Doppler and color Doppler. Other Information Quality : AverageHR: 102bpm INDICATION Dyspnea Atrial Fibrillation Cardiac Disease: CAD Surgery/Intervention Pacemaker: RISK FACTORS Hypertension Hyperlipidemia Diabetes 2D DIMENSIONS Left Atrium(2D)4.0 (1.6-4.0cm)IVSd1.1 (0.7-1.1cm) Aortic Root(2D)3.4 (2.0-3.7cm)LVDd4.0 (3.9-5.9cm) PWd1.1 (0.7-1.1cm)LVDs2.6 (2.5-4.0cm) FS (%) 35.6 %SV46.1 ml LVEF(%)65.6 (>50%) Mitral Valve MV E Peak Gr.14mmHgMV E Mean Gr.6mmHg TDI Lateral E' P. V11.58cm/sMedial E' P. V8.17cm/s Tricuspid Valve TR P. Dertgbfl650fs/sRAP [id number] TR Peak Gr.[id number] LEFT VENTRICLE The left ventricle is normal size. There is mild concentric left ventricular hypertrophy. The left ve ntricular systolic function is normal. The Ejection Fraction is 55-60%. There is normal LV segmental wall motion. Transmitral Doppler flow pattern is Grade II-pseudonormal filling dynamics. RIGHT VENTRICLE The right ventricle is mildly dilated. There is normal right ventricular wall thickness. The right ve ntricular systolic function is normal. There is a pacemaker lead in the right ventricle. ATRIA The left atrium is moderately dilated. The right atrium is mildly dilated. The interatrial septum is intact with no evidence for an atrial septal defect or patent foramen ovale as noted on 2-D or Dopple r imaging. AORTIC VALVE The aortic valve is normal in structure and function. Doppler and color-flow analysis was not perform ed. There is no significant aortic valvular stenosis. MITRAL VALVE The mitral valve is normal in structure and function. Mitral annular calcification is mild. There is no evidence of mitral valve prolapse. There is no mitral valve stenosis. Doppler and Color-flow revea led trace to mild mitral regurgitation. TRICUSPID VALVE The tricuspid valve is normal in structure and function. Doppler and Color Flow revealed trace tricus pid regurgitation with an estimated PAP of 56 mmHg, There is no tricuspid valve stenosis. PULMONIC VALVE The pulmonic valve is not well visualized. Doppler and color-flow analysis was not performed. GREAT VESSELS The aortic root is normal in size. The IVC is dilated. PERICARDIAL EFFUSION There is no evidence of significant pericardial effusion. Critical Notification Critical Value: No <Conclusion> The left ventricular systolic function is normal. The Ejection Fraction is 55-60%. There is normal LV segmental wall motion. Pacer wire noted RA/RV. Trace to mild mitral regurgitation. Trace tricuspid regurgitation with an estimated PAP of 56 mmHg, There is no evidence of significant pericardial effusion. Signed by : Moshe Medel, Electronically Approved : 04/07/2021 12:11:52
[2021-04-07] MEDS: cefTRIAXone IV Push 1 GM VIAL. IVP SCH (12:24)
--- NOTE | 2021-04-07 12:45 | PDOC ---
[employer] PROGRESS NOTE Date of Service DOS: DATE: 04/07/21 TIME: 12:44 Chief Complaint Chief Complaint Acute respiratory failure with CHF, RVR 2. Acute on chronic probable diastolic CHF 3. PAFIB with RVR; on Cardizem gtt for rate control. Eliquis for stroke prophylaxis. Follows with [facility] cardiology. 4. SSS s/p PPM (Medtr[employer]). intermittent v-pacing 6. Hypertension; controlled 7. Hyperlipidemia; statin 8. MACK on CKD 9. Diabetes, II 10. Hyperthyroidism; on methimazole. 12. Dementia History of Present Illness History of Present Illness overdiuesed, cr upp to 2.4 will give a liter NS, hold lasix, delicate balance of cardiac and renal fxn try to DC to skilled tomrrow cont current Vitals/I&O Vitals/I&O: Vital Signs Date Time Temp Pulse Resp B/P (MAP) Pulse Ox O2 Delivery O2 Flow Rate FiO2 04/07/21 11:00 97.2 88 20 124/70 (88) 100 Nasal Cannula 2.0 97.2 I & O 04/06/21 04/06/21 04/07/21 15:00 23:00 07:00 Intake Total 480 ml 240 ml 100 ml Output Total 150 ml Balance 480 ml 240 ml -50 ml Physical Exam General: Alert, Cooperative, No acute distress, Other (oriented to person and place ) Heart: Other (AFIB) Lungs: Clear Abdomen: Normal bowel sounds, Soft, Other (obese) Extremities: Other (2+ bilateral LE edema ) Skin: No rashes, No breakdown, No significant lesion Labs Labs: Laboratory Tests Test 04/06/21 16:28 04/06/21 21:15 04/07/21 04:55 04/07/21 07:20 Glucose (Fingerstick) 207 mg/dL (70-99) 195 mg/dL (70-99) 205 mg/dL (70-99) White Blood Count 10.9 x10^3/uL (4.0-11.0) Red Blood Count 3.61 x10^6/uL (3.50-5.40) Hemoglobin 10.3 g/dL (12.0-15.5) Hematocrit 33.0 % (36.0-47.0) Mean Corpuscular Volume 91 fL (79-100) Mean Corpuscular Hemoglobin 29 pg (25-35) Mean Corpuscular Hemoglobin Concent 31 g/dL (31-37) Red Cell Distribution Width 14.6 % (11.5-14.5) Platelet Count 273 x10^3/uL (140-400) Neutrophils (%) (Auto) 77 % (31-73) Lymphocytes (%) (Auto) 14 % (24-48) Monocytes (%) (Auto) 9 % (0-9) Eosinophils (%) (Auto) 0 % (0-3) Basophils (%) (Auto) 0 % (0-3) Neutrophils # (Auto) 8.4 x10^3/uL (1.8-7.7) Lymphocytes # (Auto) 1.5 x10^3/uL (1.0-4.8) Monocytes # (Auto) 1.0 x10^3/uL (0.0-1.1) Eosinophils # (Auto) 0.0 x10^3/uL (0.0-0.7) Basophils # (Auto) 0.0 x10^3/uL (0.0-0.2) Sodium Level 141 mmol/L (136-145) Potassium Level 5.1 mmol/L (3.5-5.1) Chloride Level 99 mmol/L (98-107) Carbon Dioxide Level 31 mmol/L (21-32) Anion Gap 11 (6-14) Blood Urea Nitrogen 55 mg/dL (7-20) Creatinine 2.4 mg/dL (0.6-1.0) Estimated GFR (Cockcroft-Gault) 19.2 Glucose Level 195 mg/dL (70-99) Calcium Level 9.0 mg/dL (8.5-10.1) Magnesium Level 2.1 mg/dL (1.8-2.4) Test 04/07/21 10:48 Glucose (Fingerstick) 209 mg/dL (70-99) Comment Review of Relevant I have reviewed the following items ian (where applicable) has been applied. Medications: Current Medications Medications (Trade) Dose Ordered Sig/Elena Route PRN Reason Start Time Stop Time Status Last Admin Dose Admin Lactobacillus Rhamnosus (Culturelle) 1 cap BID PO 04/06/21 21:00 04/07/21 09:10 Furosemide (Lasix) 40 mg DAILY IVP 04/06/21 16:00 04/07/21 10:44 DC 04/07/21 09:05 Metoprolol Tartrate (Lopressor Vial) 5 mg 1X ONCE IVP 04/06/21 16:00 04/06/21 16:01 DC 04/06/21 17:33 Potassium Chloride (Klor-Con) 20 meq DAILYWBKFT PO 04/06/21 16:00 04/07/21 09:10 Sodium Chloride 1,000 ml @ 125 mls/hr 1X ONCE IV 04/07/21 11:15 04/07/21 19:14 04/07/21 11:15 Justifications for Admission Other Justification Pneumonia and A. fib RVR RAQUEL CRISTOBAL MD Apr 07, 2021 12:45
[2021-04-07 14:11] VITALS: BP 135/61
[2021-04-07] MEDS ORDERED: dilTIAZem HCL 30 MG TABLET PO ONE (15:00)
[2021-04-07 18:55] VITALS: BP 116/61
--- NOTE | 2021-04-07 19:40 | NUR ---
Pt sitting up in chair assessment completed vss poc explained pt denied pain at this time pt reoriented to surroundings chair alarm is set will resume care and continue to monitor pt.
[2021-04-07] MEDS: ATORVASTATIN CALCIUM 40 MG TABLET. PO SCH (20:18)
[2021-04-07 22:53] VITALS: BP 141/77
[2021-04-08 03:00] VITALS: BP 127/68
[2021-04-08 04:49] LABS: BASO % 0 % (0-3); EOS % 1 % (0-3); HEMATOCRIT 33.4 % (36.0-47.0); HEMOGLOBIN 10.2 g/dL (12.0-15.5); LYMPH # 1.2 x10^3/uL (1.0-4.8); LYMPH % 18 % (24-48); MEAN CORPUSCULAR HEMOGLOBIN 28 pg (25-35); MEAN CORPUSCULAR HGB CONC 31 g/dL (31-37); MEAN CORPUSCULAR VOLUME 92 fL (79-100); MONO # 0.9 x10^3/uL (0.0-1.1); MONO % 14 % (0-9); NEUT # 4.7 x10^3/uL (1.8-7.7); NEUT % 68 % (31-73); PLATELET COUNT 242 x10^3/uL (140-400); RED BLOOD COUNT 3.63 x10^6/uL (3.50-5.40); RED CELL DISTRIBUTION WIDTH 14.6 % (11.5-14.5); WHITE BLOOD COUNT 6.9 x10^3/uL (4.0-11.0)
[2021-04-08 05:08] LABS: CALCIUM 8.9 mg/dL (8.5-10.1); CREATININE 2.3 mg/dL (0.6-1.0); GFR 20.2; MAGNESIUM 2.1 mg/dL (1.8-2.4); POTASSIUM 4.8 mmol/L (3.5-5.1)
[2021-04-08] MEDS: PANTOPRAZOLE 40 MG TABLET.DR. PO SCH (05:51)
[2021-04-08 07:00] VITALS: BP_SYST 108; BP_SYST 114; BP_DIAS 46; BP_DIAS 59
[2021-04-08] MEDS: DOXYCYCLINE HYCLATE 100 MG TABLET PO SCH ×2 (08:04→20:27)
[2021-04-08] MEDS: POTASSIUM CHLORIDE 20 MEQ TABLET.ER. PO SCH (08:05)
[2021-04-08] MEDS: CHOLECALCIFEROL (VITAMIN D3) 1,000 UNIT TABLET PO SCH (08:05)
[2021-04-08] MEDS: CALCIUM CARBONATE 500 MG TABLET PO SCH (08:05)
[2021-04-08] MEDS: GABAPENTIN 300 MG CAPSULE. PO SCH ×2 (08:05→20:27)
[2021-04-08] MEDS: APIXABAN 2.5 MG TABLET. PO SCH ×2 (08:06→20:27)
[2021-04-08] MEDS: LACTOBACILLUS RHAMNOSUS GG 1 CAPSULE. PO SCH ×2 (08:06→20:27)
[2021-04-08] MEDS: INSULIN LISPRO 300 UNITS/3 ML VIAL. SQ SCH ×3 (08:12→17:00)
[2021-04-08 10:52] VITALS: BP 123/69
[2021-04-08] MEDS: IV NORMAL SALINE 1000ML BAG 1,000 ML IV SCH (11:37)
--- NOTE | 2021-04-08 12:11 | PDOC2 ---
CONSULT Date of Consult Date of Consult DATE: 04/08/21 TIME: 12:07 Reason for Consult Reason for Consult: MACK Identification/Chief Complaint Chief Complaint States feeling better Source Source: Chart review, Patient History of Present Illness Reason for Visit: 86-year-old CF who is brought in by her son mainly because of shortness of breath on 04/05. She had been feeling that she cannot get enough deep breath for the past week . She was hospitalized 1 month ago for pneumonia. Patient is a poor historian and likely has some dementia . Currently denies any fevers, cough, chest pain or abdominal pain or dysuria or hematuria or diarrhea.Denies any urinary complaints. Baseline Cr POA was 1.6- Creat trending up , received IV lasix for above symptoms and Abnormal Cxr . Cardiology has been following She denies any complaints currently. Sleeping comfortably n the recliner . States she has voided only once since this morning . Doesnt recall seeing a Ne phrologist as OP Past Medical History Cardiovascular: AFIB, HTN, Hyperlipidemia, Other (SSS) GI: GERD Musculoskeletal: Osteoarthritis Endocrine: Diabetes Past Surgical History Past Surgical History: Pacemaker, Cholecystectomy, Cataract Removal, Tonsi llectomy, Hysterectomy Family History Family History: Heart Disease Social History No ALCOHOL: none Drugs: None Current Medications Current Medications Current Medications Apixaban (Eliquis) 2.5 mg BID PO Last administered on 04/08/21at 08:06; Start 04/05/21 at 21:00 Atorvastatin Calcium (Lipitor) 40 mg DAILY PO Last administered on 04/06/21at 08:29; Start 04/06/21 at 09:00; Stop 04/07/21 at 08:07; Status DC Calcium Carbonate/ Glycine (Oscal) 1,250 mg DAILY PO Last administered on 04/08/21at 08:05; Start 04/06/21 at 09:00 Diltiazem HCl (Cardizem 24hr Cd) 240 mg DAILY PO Last administered on 04/07/21at 09:04; Start 04/05/21 at 15:00; Stop 04/07/21 at 14:57; Status DC Gabapentin (Neurontin) 300 mg BID PO Last administered on 04/08/21at 08:05; Start 04/05/21 at 21:00 Vitamin D (Vitamin D3) 2,000 unit DAILY PO Last administered on 04/08/21at 08:05; Start 04/06/21 at 09:00 Pantoprazole Sodium (Protonix) 40 mg DAILYAC PO Last administered on 04/08/21at 05:51; Start 04/06/21 at 07:30 Insulin Human Lispro (HumaLOG) 0-5 UNITS TIDWMEALS SQ Last administered on 04/08/21at 08:12; Start 04/05/21 at 17:00 Dextrose (Dextrose 50%-Water Syringe) 12.5 gm PRN Q15MIN PRN IV SEE COMMENTS; Start 04/05/21 at 12:30; Stop 04/05/21 at 13:33; Status DC Ceftriaxone Sodium (Rocephin) 1 gm Q24H IVP Last administered on 04/07/21at 12:24; Start 04/05/21 at 13:00 Doxycycline Hyclate (Vibra-Tab) 100 mg BID PO Last administered on 04/08/21at 08:04; Start 04/05/21 at 21:00 Sennosides (Senna) 17.2 mg PRN BID PRN PO CONSTIPATION; Start 04/05/21 at 12:45 Docusate Sodium (Colace) 100 mg PRN DAILY PRN PO HARD STOOLS; Start 04/05/21 at 12:45 Ondansetron HCl (Zofran) 4 mg PRN Q6HRS PRN IVP NAUSEA/VOMITING, 1st CHOICE; Start 04/05/21 at 12:45 Dextrose (Dextrose 50%-Water Syringe) 12.5 gm PRN Q15MIN PRN IV SEE COMMENTS; Start 04/05/21 at 12:45 Acetaminophen (Tylenol) 650 mg PRN Q4HRS PRN PO TEMP OVER 100.4F OR MILD PAIN; Start 04/05/21 at 12:45 Lorazepam (Ativan) 0.5 mg PRN Q6HRS PRN PO ANXIETY / AGITATION; Start 04/05/21 at 12:45 Lorazepam (Ativan Inj) 0.25 mg PRN Q4HRS PRN IV ANXIETY / AGITATION Last administered on 04/06/21at 14:38; Start 04/05/21 at 12:45 Prochlorperazine Edisylate (Compazine) 10 mg PRN Q6HRS PRN IV NAUSEA/VOMITING, 2nd CHOICE; Start 04/05/21 at 12:45 Diphenhydramine HCl (Benadryl) 25 mg PRN Q6HRS PRN IVP ITCHING; Start 04/05/21 at 12:45 Diphenhydramine HCl (Benadryl) 25 mg PRN Q6HRS PRN PO ITCHING; Start 04/05/21 at 12:45 Diphenhydramine HCl (Benadryl) 25 mg PRN QHS PRN PO INSOMNIA, 1st CHOICE; S tart 04/05/21 at 12:45 Zolpidem Tartrate (Ambien) 2.5 mg PRN QHS PRN PO INSOMNIA, 2nd CHOICE; Start 04/05/21 at 12:45 Furosemide (Lasix) 40 mg 1X ONCE IVP Last administered on 04/05/21at 14:42; Start 04/05/21 at 14:45; Stop 04/05/21 at 14:46; Status DC Diltiazem HCl 125 mg/Sodium Chloride 125 ml @ 5 mls/hr CONT PRN IV PER PROTOCOL; Start 04/05/21 at 17:00; Stop 04/05/21 at 16:52; Status DC Diltiazem HCl 125 mg/Dextrose 125 ml @ 5 mls/hr CONT PRN IV PER PROTOCOL Last administered on 04/06/21at 13:07; Start 04/05/21 at 17:00; Stop 04/07/21 at 01:01; Status DC Lactobacillus Rhamnosus (Culturelle) 1 cap BID PO Last administered on 04/08/21at 08:06; Start 04/06/21 at 21:00 Furosemide (Lasix) 40 mg DAILY IVP Last administered on 04/07/21at 09:05; Start 04/06/21 at 16:00; Stop 04/07/21 at 10:44; Status DC Metoprolol Tartrate (Lopressor Vial) 5 mg 1X ONCE IVP Last administered on 03/16 05/03at 17:33; Start 04/06/21 at 16:00; Stop 04/06/21 at 16:01; Status DC Potassium Chloride (Klor-Con) 20 meq [id number] PO Last administered on 04/08/21at 08:05; Start 04/06/21 at 16:00 Atorvastatin Calcium (Lipitor) 40 mg QHS PO Last administered on 04/07/21at 20:18; Start 04/07/21 at 21:00 Sodium Chloride 1,000 ml @ 125 mls/hr 1X ONCE IV Last administered on 04/07/21at 11:15; Start 04/07/21 at 11:15; Stop 04/07/21 at 19:14; Status DC Diltiazem HCl (Cardizem 24hr Cd) 300 mg DAILY PO Last administered on 04/08/21at 08:06; Start 04/08/21 at 09:00 Diltiazem HCl (Cardizem) 60 mg 1X ONCE PO Last administered on 04/07/21at 15:26; Start 04/07/21 at 15:00; Stop 04/07/21 at 15:01; Status DC Sodium Chloride 1,000 ml @ 75 mls/hr [id number] IV Last administered on 04/08/21at 11:37; Start 04/08/21 at 12:00 Active Scripts Active Doxycycline Hyclate 100 Mg Tablet 100 Mg PO BID Reported Ibandronate Sodium 150 Mg Tablet 1 Tab PO QMONTH 30 Days Methimazole 5 Mg Tablet 5 Mg PO DAILY Januvia (Sitagliptin Phosphate) 100 Mg Tablet 1 Tab PO DAILY Diltiazem 24Hr Cd (Diltiazem HCl) 240 Mg Cap.er.24h 240 Mg PO DAILY Calcium Carbonate 500 Mg Tablet 1,250 Mg PO DAILY 30 Days Namenda (Memantine Hcl) 10 Mg Tablet 5 Mg PO BID Eliquis (Apixaban) 2.5 Mg Tablet 2.5 Mg PO BID Atorvastatin Calcium 40 Mg Tablet 1 Tab PO DAILY Thera-D (Cholecalciferol (Vitamin D3)) 100 Mcg Tablet 2,000 Units PO DAILY Acetaminophen 325 Mg Tablet 2 Tab PO PRN Q4-6HRS PRN 24 Days Lasix (Furosemide) 40 Mg Tablet 40 Mg PO BID Omeprazole 20 Mg Capsule.dr 20 Mg PO DAILY Gabapentin (Gabapentin) 300 Mg Capsule 300 Mg PO BID Allergies Allergies: Coded Allergies: influenza virus vacc,specific (Verified Allergy, Intermediate, Rash, 06/02/14) INJECTION SITE AND ARM HAD RED RASH AND SWELLING Sulfa (Sulfonamide Antibiotics) (Verified Adverse Reaction, Intermediate, Nausea and Vomiting, 06/02/14) codeine (Verified Adverse Reaction, Intermediate, Nausea and Vomiting, 06/02/14) ROS Review of System As per HPI, rest of the ROS is negative Physical Exam Physical Exam General: Alert, Cooperative, No acute distress, HEEN OM moist. On O2 by NC Neck supple Lungs: diminished bases, non labored Heart: (AFIB) Abdomen: Soft, obese, NT Extremities: trace bilateral LE edema Skin: No significant lesion, No rash Neuro: Normal speech, Sensation intact, grossly normal Psych/Mental Status: ? baseline dementia No Turner, No CVA or SP tenderness Vital Signs Vital Signs Date Time Temp Pulse Resp B/P (MAP) Pulse Ox O2 Delivery O2 Flow Rate FiO2 04/08/21 10:52 97.2 104 20 123/69 (87) 94 Nasal Cannula 2.0 97.2 Assessment & Plan MACK - ATN/Cardiorenal , Non Oliguric , E-Lytes stable, Supportive care, maintain fluid balance, strict I/O, daily standing weight avoid Nephrotoxins . Probably baseline CKD, no labs available in [facility] records Acute respiratory failure with CHF, RVR Acute on chronic probable diastolic CHF; improved s/p IV diuresis PAFIB with RVR; on Cardizem gtt for rate control and Eliquis for stroke prophylaxis. Follows with [facility] cardiology. Rate mildly elevated SSS s/p PPM intermittent v-pacing Hypertension; controlled Diabetes, II Dementia Recommendations Continue Cardizem; will increase for better rate control Eliquis for stroke prophylaxis Hold Lasix with increase Cr Agree with gentle hydration Supportive care Labs Labs Laboratory Tests Test 04/06/21 16:28 04/06/21 21:15 04/07/21 04:55 04/07/21 07:20 Glucose (Fingerstick) 207 mg/dL (70-99) 195 mg/dL (70-99) 205 mg/dL (70-99) White Blood Count 10.9 x10^3/uL (4.0-11.0) Red Blood Count 3.61 x10^6/uL (3.50-5.40) Hemoglobin 10.3 g/dL (12.0-15.5) Hematocrit 33.0 % (36.0-47.0) Mean Corpuscular Volume 91 fL (79-100) Mean Corpuscular Hemoglobin 29 pg (25-35) Mean Corpuscular Hemoglobin Concent 31 g/dL (31-37) Red Cell Distribution Width 14.6 % (11.5-14.5) Platelet Count 273 x10^3/uL (140-400) Neutrophils (%) (Auto) 77 % (31-73) Lymphocytes (%) (Auto) 14 % (24-48) Monocytes (%) (Auto) 9 % (0-9) Eosinophils (%) (Auto) 0 % (0-3) Basophils (%) (Auto) 0 % (0-3) Neutrophils # (Auto) 8.4 x10^3/uL (1.8-7.7) Lymphocytes # (Auto) 1.5 x10^3/uL (1.0-4.8) Monocytes # (Auto) 1.0 x10^3/uL (0.0-1.1) Eosinophils # (Auto) 0.0 x10^3/uL (0.0-0.7) Basophils # (Auto) 0.0 x10^3/uL (0.0-0.2) Sodium Level 141 mmol/L (136-145) Potassium Level 5.1 mmol/L (3.5-5.1) Chloride Level 99 mmol/L (98-107) Carbon Dioxide Level 31 mmol/L (21-32) Anion Gap 11 (6-14) Blood Urea Nitrogen 55 mg/dL (7-20) Creatinine 2.4 mg/dL (0.6-1.0) Estimated GFR (Cockcroft-Gault) 19.2 Glucose Level 195 mg/dL (70-99) Calcium Level 9.0 mg/dL (8.5-10.1) Magnesium Level 2.1 mg/dL (1.8-2.4) Test 04/07/21 09:44 04/07/21 10:48 04/07/21 16:32 04/07/21 20:11 Coronavirus (COVID-19)(PCR) Not detected (NOT DETECTD) Glucose (Fingerstick) 209 mg/dL (70-99) 187 mg/dL (70-99) 164 mg/dL (70-99) Test 04/08/21 04:30 04/08/21 07:04 04/08/21 11:21 White Blood Count 6.9 x10^3/uL (4.0-11.0) Red Blood Count 3.63 x10^6/uL (3.50-5.40) Hemoglobin 10.2 g/dL (12.0-15.5) Hematocrit 33.4 % (36.0-47.0) Mean Corpuscular Volume 92 fL (79-100) Mean Corpuscular Hemoglobin 28 pg (25-35) Mean Corpuscular Hemoglobin Concent 31 g/dL (31-37) Red Cell Distribution Width 14.6 % (11.5-14.5) Platelet Count 242 x10^3/uL (140-400) Neutrophils (%) (Auto) 68 % (31-73) Lymphocytes (%) (Auto) 18 % (24-48) Monocytes (%) (Auto) 14 % (0-9) Eosinophils (%) (Auto) 1 % (0-3) Basophils (%) (Auto) 0 % (0-3) Neutrophils # (Auto) 4.7 x10^3/uL (1.8-7.7) Lymphocytes # (Auto) 1.2 x10^3/uL (1.0-4.8) Monocytes # (Auto) 0.9 x10^3/uL (0.0-1.1) Eosinophils # (Auto) 0.0 x10^3/uL (0.0-0.7) Basophils # (Auto) 0.0 x10^3/uL (0.0-0.2) Sodium Level 140 mmol/L (136-145) Potassium Level 4.8 mmol/L (3.5-5.1) Chloride Level 100 mmol/L (98-107) Carbon Dioxide Level 34 mmol/L (21-32) Anion Gap 6 (6-14) Blood Urea Nitrogen 58 mg/dL (7-20) Creatinine 2.3 mg/dL (0.6-1.0) Estimated GFR (Cockcroft-Gault) 20.2 Glucose Level 174 mg/dL (70-99) Calcium Level 8.9 mg/dL (8.5-10.1) Magnesium Level 2.1 mg/dL (1.8-2.4) Glucose (Fingerstick) 158 mg/dL (70-99) 190 mg/dL (70-99) Laboratory Tests Test 04/07/21 16:32 04/07/21 20:11 04/08/21 04:30 04/08/21 07:04 Glucose (Fingerstick) 187 mg/dL (70-99) 164 mg/dL (70-99) 158 mg/dL (70-99) White Blood Count 6.9 x10^3/uL (4.0-11.0) Red Blood Count 3.63 x10^6/uL (3.50-5.40) Hemoglobin 10.2 g/dL (12.0-15.5) Hematocrit 33.4 % (36.0-47.0) Mean Corpuscular Volume 92 fL (79-100) Mean Corpuscular Hemoglobin 28 pg (25-35) Mean Corpuscular Hemoglobin Concent 31 g/dL (31-37) Red Cell Distribution Width 14.6 % (11.5-14.5) Platelet Count 242 x10^3/uL (140-400) Neutrophils (%) (Auto) 68 % (31-73) Lymphocytes (%) (Auto) 18 % (24-48) Monocytes (%) (Auto) 14 % (0-9) Eosinophils (%) (Auto) 1 % (0-3) Basophils (%) (Auto) 0 % (0-3) Neutrophils # (Auto) 4.7 x10^3/uL (1.8-7.7) Lymphocytes # (Auto) 1.2 x10^3/uL (1.0-4.8) Monocytes # (Auto) 0.9 x10^3/uL (0.0-1.1) Eosinophils # (Auto) 0.0 x10^3/uL (0.0-0.7) Basophils # (Auto) 0.0 x10^3/uL (0.0-0.2) Sodium Level 140 mmol/L (136-145) Potassium Level 4.8 mmol/L (3.5-5.1) Chloride Level 100 mmol/L (98-107) Carbon Dioxide Level 34 mmol/L (21-32) Anion Gap 6 (6-14) Blood Urea Nitrogen 58 mg/dL (7-20) Creatinine 2.3 mg/dL (0.6-1.0) Estimated GFR (Cockcroft-Gault) 20.2 Glucose Level 174 mg/dL (70-99) Calcium Level 8.9 mg/dL (8.5-10.1) Magnesium Level 2.1 mg/dL (1.8-2.4) Test 04/08/21 11:21 Glucose (Fingerstick) 190 mg/dL (70-99) Review All relevant outside records, renal labs, imaging studies, telemetry/EKG's were reviewed. Images Images EXAM: XR CHEST 2V 04/07/2021 10:08 AM CLINICAL INDICATION: CHF COMPARISON: Chest radiograph 04/04/2019 to TECHNIQUE: PA and lateral views of chest FINDINGS: Unchanged pacemaker. Spinal stimulator device is noted. Heart remains unchanged. The lungs are hypoexpanded. There are unchanged mild diffuse interstitial opacities and more confluent bibasilar airspace opacities. Small pleural effusions. No pneumothorax. No acute osseous abnormality. IMPRESSION: 1. Unchanged bilateral opacities which may be due to pneumonia and/or pulmonary edema. 2. Unchanged small pleural effusions. TAI MINER MD Apr 08, 2021 12:11
[2021-04-08] MEDS: cefTRIAXone IV Push 1 GM VIAL. IVP SCH (12:16)
--- NOTE | 2021-04-08 13:01 | PDOC ---
[employer] PROGRESS NOTE Date of Service DOS: DATE: 04/08/21 TIME: 13:01 Chief Complaint Chief Complaint Acute respiratory failure with CHF, RVR 2. Acute on chronic probable diastolic CHF 3. PAFIB with RVR; on Cardizem gtt for rate control. Eliquis for stroke prophylaxis. Follows with [facility] cardiology. 4. SSS s/p PPM ([employer]). intermittent v-pacing 6. Hypertension; controlled 7. Hyperlipidemia; statin 8. MACK on CKD 9. Diabetes, II 10. Hyperthyroidism; on methimazole. 12. Dementia History of Present Illness History of Present Illness , renal fxn not improved with IV fluid yesterday, consult renal, give additional fluid today out of bed, PT and Ot to skilled soon, creatinine baseline 1.5 overdiuesed, cr upp to 2.4 will give a liter NS, hold lasix, delicate balance of cardiac and renal fxn try to DC to skilled tomrrow cont current Vitals/I&O Vitals/I&O: Vital Signs Date Time Temp Pulse Resp B/P (MAP) Pulse Ox O2 Delivery O2 Flow Rate FiO2 04/08/21 10:52 97.2 104 20 123/69 (87) 94 Nasal Cannula 2.0 97.2 I & O 04/07/21 04/07/21 04/08/21 15:00 23:00 07:00 Intake Total 150 ml 150 ml Output Total 200 ml 650 ml Balance 150 ml -50 ml -650 ml Physical Exam General: Alert, Cooperative, No acute distress, Other (oriented to person and place ) Heart: Other (AFIB) Lungs: Clear Abdomen: Normal bowel sounds, Soft, Other (obese) Extremities: Other (2+ bilateral LE edema ) Skin: No rashes, No breakdown, No significant lesion Labs Labs: Laboratory Tests Test 04/07/21 16:32 04/07/21 20:11 04/08/21 04:30 04/08/21 07:04 Glucose (Fingerstick) 187 mg/dL (70-99) 164 mg/dL (70-99) 158 mg/dL (70-99) White Blood Count 6.9 x10^3/uL (4.0-11.0) Red Blood Count 3.63 x10^6/uL (3.50-5.40) Hemoglobin 10.2 g/dL (12.0-15.5) Hematocrit 33.4 % (36.0-47.0) Mean Corpuscular Volume 92 fL (79-100) Mean Corpuscular Hemoglobin 28 pg (25-35) Mean Corpuscular Hemoglobin Concent 31 g/dL (31-37) Red Cell Distribution Width 14.6 % (11.5-14.5) Platelet Count 242 x10^3/uL (140-400) Neutrophils (%) (Auto) 68 % (31-73) Lymphocytes (%) (Auto) 18 % (24-48) Monocytes (%) (Auto) 14 % (0-9) Eosinophils (%) (Auto) 1 % (0-3) Basophils (%) (Auto) 0 % (0-3) Neutrophils # (Auto) 4.7 x10^3/uL (1.8-7.7) Lymphocytes # (Auto) 1.2 x10^3/uL (1.0-4.8) Monocytes # (Auto) 0.9 x10^3/uL (0.0-1.1) Eosinophils # (Auto) 0.0 x10^3/uL (0.0-0.7) Basophils # (Auto) 0.0 x10^3/uL (0.0-0.2) Sodium Level 140 mmol/L (136-145) Potassium Level 4.8 mmol/L (3.5-5.1) Chloride Level 100 mmol/L (98-107) Carbon Dioxide Level 34 mmol/L (21-32) Anion Gap 6 (6-14) Blood Urea Nitrogen 58 mg/dL (7-20) Creatinine 2.3 mg/dL (0.6-1.0) Estimated GFR (Cockcroft-Gault) 20.2 Glucose Level 174 mg/dL (70-99) Calcium Level 8.9 mg/dL (8.5-10.1) Magnesium Level 2.1 mg/dL (1.8-2.4) Test 04/08/21 11:21 Glucose (Fingerstick) 190 mg/dL (70-99) Comment Review of Relevant I have reviewed the following items ian (where applicable) has been applied. Medications: Current Medications Medications (Trade) Dose Ordered Sig/Elena Route PRN Reason Start Time Stop Time Status Last Admin Dose Admin Atorvastatin Calcium (Lipitor) 40 mg QHS PO 04/07/21 21:00 04/07/21 20:18 Diltiazem HCl (Cardizem 24hr Cd) 300 mg DAILY PO 04/08/21 09:00 04/08/21 08:06 Diltiazem HCl (Cardizem) 60 mg 1X ONCE PO 04/07/21 15:00 04/07/21 15:01 DC 04/07/21 15:26 Sodium Chloride 1,000 ml @ 75 mls/hr [id number] IV 04/08/21 12:00 04/08/21 11:37 Justifications for Admission Other Justification Pneumonia and A. fib RVR RAQUEL CRISTOBAL MD Apr 08, 2021 13:01
[2021-04-08 14:17] VITALS: BP 137/60
--- NOTE | 2021-04-08 15:05 | PDOC ---
PROGRESS NOTES Date of Service DATE: 04/08/21 TIME: 15:02 Subjective Subjective Patient seen and examined Objective Objective Vital Signs Date Time Temp Pulse Resp B/P (MAP) Pulse Ox O2 Delivery O2 Flow Rate FiO2 04/08/21 14:17 97.2 109 20 137/60 (85) 94 Nasal Cannula 2.0 97.2 Intake and Output 04/08/21 07:00 Intake Total 300 ml Output Total 850 ml Balance -550 ml Intake Oral 300 ml Output Urine Total 850 ml Physical Exam Abdomen: Normal bowel sounds Heart: Other (Irregularly irregular with a rate of 108) General: mild distress Lungs: Other (Mildly decreased breath sounds) Assessment Assessment Acute respiratory failure with CHF, RVR. Continues to gradually improve. Acute on chronic probable diastolic CHF. Mildly improved. PAFIB with RVR; oral Cardizem increased but patient's rate is still elevated. We will continue on Eliquis. Will start very low-dose beta-blockers. The patient is followed at [facility]. SSS s/p PPM ([employer]). 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 Dementia Comment Review of Relevant I have reviewed the following items ian (where applicable) has been applied. Labs Laboratory Tests Test 04/06/21 16:28 04/06/21 21:15 04/07/21 04:55 04/07/21 07:20 Glucose (Fingerstick) 207 mg/dL (70-99) 195 mg/dL (70-99) 205 mg/dL (70-99) White Blood Count 10.9 x10^3/uL (4.0-11.0) Red Blood Count 3.61 x10^6/uL (3.50-5.40) Hemoglobin 10.3 g/dL (12.0-15.5) Hematocrit 33.0 % (36.0-47.0) Mean Corpuscular Volume 91 fL (79-100) Mean Corpuscular Hemoglobin 29 pg (25-35) Mean Corpuscular Hemoglobin Concent 31 g/dL (31-37) Red Cell Distribution Width 14.6 % (11.5-14.5) Platelet Count 273 x10^3/uL (140-400) Neutrophils (%) (Auto) 77 % (31-73) Lymphocytes (%) (Auto) 14 % (24-48) Monocytes (%) (Auto) 9 % (0-9) Eosinophils (%) (Auto) 0 % (0-3) Basophils (%) (Auto) 0 % (0-3) Neutrophils # (Auto) 8.4 x10^3/uL (1.8-7.7) Lymphocytes # (Auto) 1.5 x10^3/uL (1.0-4.8) Monocytes # (Auto) 1.0 x10^3/uL (0.0-1.1) Eosinophils # (Auto) 0.0 x10^3/uL (0.0-0.7) Basophils # (Auto) 0.0 x10^3/uL (0.0-0.2) Sodium Level 141 mmol/L (136-145) Potassium Level 5.1 mmol/L (3.5-5.1) Chloride Level 99 mmol/L (98-107) Carbon Dioxide Level 31 mmol/L (21-32) Anion Gap 11 (6-14) Blood Urea Nitrogen 55 mg/dL (7-20) Creatinine 2.4 mg/dL (0.6-1.0) Estimated GFR (Cockcroft-Gault) 19.2 Glucose Level 195 mg/dL (70-99) Calcium Level 9.0 mg/dL (8.5-10.1) Magnesium Level 2.1 mg/dL (1.8-2.4) Test 04/07/21 09:44 04/07/21 10:48 04/07/21 16:32 04/07/21 20:11 Coronavirus (COVID-19)(PCR) Not detected (NOT DETECTD) Glucose (Fingerstick) 209 mg/dL (70-99) 187 mg/dL (70-99) 164 mg/dL (70-99) Test 04/08/21 04:30 04/08/21 07:04 04/08/21 11:21 White Blood Count 6.9 x10^3/uL (4.0-11.0) Red Blood Count 3.63 x10^6/uL (3.50-5.40) Hemoglobin 10.2 g/dL (12.0-15.5) Hematocrit 33.4 % (36.0-47.0) Mean Corpuscular Volume 92 fL (79-100) Mean Corpuscular Hemoglobin 28 pg (25-35) Mean Corpuscular Hemoglobin Concent 31 g/dL (31-37) Red Cell Distribution Width 14.6 % (11.5-14.5) Platelet Count 242 x10^3/uL (140-400) Neutrophils (%) (Auto) 68 % (31-73) Lymphocytes (%) (Auto) 18 % (24-48) Monocytes (%) (Auto) 14 % (0-9) Eosinophils (%) (Auto) 1 % (0-3) Basophils (%) (Auto) 0 % (0-3) Neutrophils # (Auto) 4.7 x10^3/uL (1.8-7.7) Lymphocytes # (Auto) 1.2 x10^3/uL (1.0-4.8) Monocytes # (Auto) 0.9 x10^3/uL (0.0-1.1) Eosinophils # (Auto) 0.0 x10^3/uL (0.0-0.7) Basophils # (Auto) 0.0 x10^3/uL (0.0-0.2) Sodium Level 140 mmol/L (136-145) Potassium Level 4.8 mmol/L (3.5-5.1) Chloride Level 100 mmol/L (98-107) Carbon Dioxide Level 34 mmol/L (21-32) Anion Gap 6 (6-14) Blood Urea Nitrogen 58 mg/dL (7-20) Creatinine 2.3 mg/dL (0.6-1.0) Estimated GFR (Cockcroft-Gault) 20.2 Glucose Level 174 mg/dL (70-99) Calcium Level 8.9 mg/dL (8.5-10.1) Magnesium Level 2.1 mg/dL (1.8-2.4) Glucose (Fingerstick) 158 mg/dL (70-99) 190 mg/dL (70-99) Laboratory Tests Test 04/07/21 16:32 04/07/21 20:11 04/08/21 04:30 04/08/21 07:04 Glucose (Fingerstick) 187 mg/dL (70-99) 164 mg/dL (70-99) 158 mg/dL (70-99) White Blood Count 6.9 x10^3/uL (4.0-11.0) Red Blood Count 3.63 x10^6/uL (3.50-5.40) Hemoglobin 10.2 g/dL (12.0-15.5) Hematocrit 33.4 % (36.0-47.0) Mean Corpuscular Volume 92 fL (79-100) Mean Corpuscular Hemoglobin 28 pg (25-35) Mean Corpuscular Hemoglobin Concent 31 g/dL (31-37) Red Cell Distribution Width 14.6 % (11.5-14.5) Platelet Count 242 x10^3/uL (140-400) Neutrophils (%) (Auto) 68 % (31-73) Lymphocytes (%) (Auto) 18 % (24-48) Monocytes (%) (Auto) 14 % (0-9) Eosinophils (%) (Auto) 1 % (0-3) Basophils (%) (Auto) 0 % (0-3) Neutrophils # (Auto) 4.7 x10^3/uL (1.8-7.7) Lymphocytes # (Auto) 1.2 x10^3/uL (1.0-4.8) Monocytes # (Auto) 0.9 x10^3/uL (0.0-1.1) Eosinophils # (Auto) 0.0 x10^3/uL (0.0-0.7) Basophils # (Auto) 0.0 x10^3/uL (0.0-0.2) Sodium Level 140 mmol/L (136-145) Potassium Level 4.8 mmol/L (3.5-5.1) Chloride Level 100 mmol/L (98-107) Carbon Dioxide Level 34 mmol/L (21-32) Anion Gap 6 (6-14) Blood Urea Nitrogen 58 mg/dL (7-20) Creatinine 2.3 mg/dL (0.6-1.0) Estimated GFR (Cockcroft-Gault) 20.2 Glucose Level 174 mg/dL (70-99) Calcium Level 8.9 mg/dL (8.5-10.1) Magnesium Level 2.1 mg/dL (1.8-2.4) Test 04/08/21 11:21 Glucose (Fingerstick) 190 mg/dL (70-99) Medications Current Medications Apixaban (Eliquis) 2.5 mg BID PO Last administered on 04/08/21 08:06; Start 04/05/21 at 21:00 Atorvastatin Calcium (Lipitor) 40 mg DAILY PO Last administered on 04/06/21at 08:29; Start 04/06/21 at 09:00; Stop 04/07/21 at 08:07; Status DC Calcium Carbonate/ Glycine (Oscal) 1,250 mg DAILY PO Last administered on 04/08/21 08:05; Start 04/06/21 at 09:00 Diltiazem HCl (Cardizem 24hr Cd) 240 mg DAILY PO Last administered on 04/07/21 09:04; Start 04/05/21 at 15:00; Stop 04/07/21 at 14:57; Status DC Gabapentin (Neurontin) 300 mg BID PO Last administered on 04/08/21 08:05; Start 04/05/21 at 21:00 Vitamin D (Vitamin D3) 2,000 unit DAILY PO Last administered on 04/08/21 08:05; Start 04/06/21 at 09:00 Pantoprazole Sodium (Protonix) 40 mg DAILYAC PO Last administered on 04/08/21 05:51; Start 04/06/21 at 07:30 Insulin Human Lispro (HumaLOG) 0-5 UNITS TIDWMEALS SQ Last administered on 04/08/21 12:15; Start 04/05/21 at 17:00 Dextrose (Dextrose 50%-Water Syringe) 12.5 gm PRN Q15MIN PRN IV SEE COMMENTS; Start 04/05/21 at 12:30; Stop 04/05/21 at 13:33; Status DC Ceftriaxone Sodium (Rocephin) 1 gm Q24H IVP Last administered on 04/08/21 12:16; Start 04/05/21 at 13:00 Doxycycline Hyclate (Vibra-Tab) 100 mg BID PO Last administered on 04/08/21 08:04; Start 04/05/21 at 21:00 Sennosides (Senna) 17.2 mg PRN BID PRN PO CONSTIPATION; Start 04/05/21 at 12:45 Docusate Sodium (Colace) 100 mg PRN DAILY PRN PO HARD STOOLS; Start 04/05/21 at 12:45 Ondansetron HCl (Zofran) 4 mg PRN Q6HRS PRN IVP NAUSEA/VOMITING, 1st CHOICE; Start 04/05/21 at 12:45 Dextrose (Dextrose 50%-Water Syringe) 12.5 gm PRN Q15MIN PRN IV SEE COMMENTS; Start 04/05/21 at 12:45 Acetaminophen (Tylenol) 650 mg PRN Q4HRS PRN PO TEMP OVER 100.4F OR MILD PAIN; Start 04/05/21 at 12:45 Lorazepam (Ativan) 0.5 mg PRN Q6HRS PRN PO ANXIETY / AGITATION; Start 04/05/21 at 12:45 Lorazepam (Ativan Inj) 0.25 mg PRN Q4HRS PRN IV ANXIETY / AGITATION Last administered on 04/06/21at 14:38; Start 04/05/21 at 12:45 Prochlorperazine Edisylate (Compazine) 10 mg PRN Q6HRS PRN IV NAUSEA/VOMITING, 2nd CHOICE; Start 04/05/21 at 12:45 Diphenhydramine HCl (Benadryl) 25 mg PRN Q6HRS PRN IVP ITCHING; Start 04/05/21 at 12:45 Diphenhydramine HCl (Benadryl) 25 mg PRN Q6HRS PRN PO ITCHING; Start 04/05/21 at 12:45 Diphenhydramine HCl (Benadryl) 25 mg PRN QHS PRN PO INSOMNIA, 1st CHOICE; Start 04/05/21 at 12:45 Zolpidem Tartrate (Ambien) 2.5 mg PRN QHS PRN PO INSOMNIA, 2nd CHOICE; Start 04/05/21 at 12:45 Furosemide (Lasix) 40 mg 1X ONCE IVP Last administered on 04/05/21at 14:42; Start 04/05/21 at 14:45; Stop 04/05/21 at 14:46; Status DC Diltiazem HCl 125 mg/Sodium Chloride 125 ml @ 5 mls/hr CONT PRN IV PER PROTOCOL; Start 04/05/21 at 17:00; Stop 04/05/21 at 16:52; Status DC Diltiazem HCl 125 mg/Dextrose 125 ml @ 5 mls/hr CONT PRN IV PER PROTOCOL Last administered on 04/06/21at 13:07; Start 04/05/21 at 17:00; Stop 04/07/21 at 01:01; Status DC Lactobacillus Rhamnosus (Culturelle) 1 cap BID PO Last administered on 04/08/21at 08:06; Start 04/06/21 at 21:00 Furosemide (Lasix) 40 mg DAILY IVP Last administered on 04/07/21at 09:05; Start 04/06/21 at 16:00; Stop 04/07/21 at 10:44; Status DC Metoprolol Tartrate (Lopressor Vial) 5 mg 1X ONCE IVP Last administered on 04/06/21at 17:33; Start 04/06/21 at 16:00; Stop 04/06/21 at 16:01; Status DC Potassium Chloride (Klor-Con) 20 meq DAILYWBKFT PO Last administered on 04/08/21at 08:05; Start 04/06/21 at 16:00; Stop 04/08/21 at 13:11; Status DC Atorvastatin Calcium (Lipitor) 40 mg QHS PO Last administered on 04/07/21at 20:18; Start 04/07/21 at 21:00 Sodium Chloride 1,000 ml @ 125 mls/hr 1X ONCE IV Last administered on 04/07/21at 11:15; Start 04/07/21 at 11:15; Stop 04/07/21 at 19:14; Status DC Diltiazem HCl (Cardizem 24hr Cd) 300 mg DAILY PO Last administered on 04/08/21at 08:06; Start 04/08/21 at 09:00 Diltiazem HCl (Cardizem) 60 mg 1X ONCE PO Last administered on 04/07/21at 15:26; Start 04/07/21 at 15:00; Stop 04/07/21 at 15:01; Status DC Sodium Chloride 1,000 ml @ 75 mls/hr [id number] IV Last administered on 04/08/21at 11:37; Start 04/08/21 at 12:00 Active Scripts Active Doxycycline Hyclate 100 Mg Tablet 100 Mg PO BID Reported Ibandronate Sodium 150 Mg Tablet 1 Tab PO QMONTH 30 Days Methimazole 5 Mg Tablet 5 Mg PO DAILY Januvia (Sitagliptin Phosphate) 100 Mg Tablet 1 Tab PO DAILY Diltiazem 24Hr Cd (Diltiazem HCl) 240 Mg Cap.er.24h 240 Mg PO DAILY Calcium Carbonate 500 Mg Tablet 1,250 Mg PO DAILY 30 Days Namenda (Memantine Hcl) 10 Mg Tablet 5 Mg PO BID Eliquis (Apixaban) 2.5 Mg Tablet 2.5 Mg PO BID Atorvastatin Calcium 40 Mg Tablet 1 Tab PO DAILY Thera-D (Cholecalciferol (Vitamin D3)) 100 Mcg Tablet 2,000 Units PO DAILY Acetaminophen 325 Mg Tablet 2 Tab PO PRN Q4-6HRS PRN 24 Days Lasix (Furosemide) 40 Mg Tablet 40 Mg PO BID Omeprazole 20 Mg Capsule.dr 20 Mg PO DAILY Gabapentin (Gabapentin) 300 Mg Capsule 300 Mg PO BID Vitals/I & O Vital Sign - Last 24 Hours 04/07/21 04/07/21 04/07/21 04/07/21 15:26 18:55 19:40 22:53 Temp 97.6 97.9 97.6 97.9 Pulse 107 80 108 Resp 16 16 B/P (MAP) 135/61 116/61 (79) 141/77 (98) Pulse Ox 93 93 O2 Delivery Nasal Cannula Nasal Cannula Nasal Cannula O2 Flow Rate 2.0 2.0 2.0 04/08/21 04/08/21 04/08/21 04/08/21 03:00 07:00 07:00 08:00 Temp 98.0 97.3 98.0 97.3 Pulse 101 105 Resp 18 20 B/P (MAP) 127/68 (87) 108/59 (75) Pulse Ox 96 97 O2 Delivery Nasal Cannula Nasal Cannula Nasal Cannula O2 Flow Rate 2.0 2.0 2.0 04/08/21 04/08/21 04/08/21 08:06 10:52 14:17 Temp 97.2 97.2 97.2 97.2 Pulse 105 104 109 Resp 20 20 B/P (MAP) 108/59 123/69 (87) 137/60 (85) Pulse Ox 94 94 O2 Delivery Nasal Cannula Nasal Cannula O2 Flow Rate 2.0 2.0 Intake and Output 04/07/21 04/07/21 04/08/21 15:00 23:00 07:00 Intake Total 150 ml 150 ml Output Total 200 ml 650 ml Balance 150 ml -50 ml -650 ml Justifications for Admission Other Justification Pneumonia and A. fib RVR YOU MOSES MD Apr 08, 2021 15:05
[2021-04-08 19:06] VITALS: BP 119/75
[2021-04-08] MEDS: ATORVASTATIN CALCIUM 40 MG TABLET. PO SCH (20:27)
[2021-04-08 23:05] VITALS: BP 119/70
[2021-04-09] MEDS: IV NORMAL SALINE 1000ML BAG 1,000 ML IV SCH ×2 (00:02→16:43)
[2021-04-09 03:05] VITALS: BP 125/80
[2021-04-09] MEDS: PANTOPRAZOLE 40 MG TABLET.DR. PO SCH (05:50)
[2021-04-09 07:00] VITALS: BP 140/76
[2021-04-09 07:56] LABS: CALCIUM 8.9 mg/dL (8.5-10.1); CREATININE 1.6 mg/dL (0.6-1.0); GFR 30.6
[2021-04-09 08:01] LABS: POTASSIUM 5.5 mmol/L (3.5-5.1)
[2021-04-09] MEDS: LACTOBACILLUS RHAMNOSUS GG 1 CAPSULE. PO SCH ×2 (08:44→20:35)
[2021-04-09] MEDS: DOXYCYCLINE HYCLATE 100 MG TABLET PO SCH ×2 (08:44→20:35)
[2021-04-09] MEDS: GABAPENTIN 300 MG CAPSULE. PO SCH ×2 (08:44→20:34)
[2021-04-09] MEDS: CHOLECALCIFEROL (VITAMIN D3) 1,000 UNIT TABLET PO SCH (08:44)
[2021-04-09] MEDS: APIXABAN 2.5 MG TABLET. PO SCH ×2 (08:45→21:00)
[2021-04-09] MEDS: CALCIUM CARBONATE 500 MG TABLET PO SCH (08:45)
[2021-04-09] MEDS: INSULIN LISPRO 300 UNITS/3 ML VIAL. SQ SCH ×3 (08:54→17:37)
[2021-04-09 11:00] VITALS: BP 148/94
[2021-04-09] MEDS: cefTRIAXone IV Push 1 GM VIAL. IVP SCH (12:56)
--- NOTE | 2021-04-09 13:15 | PDOC ---
PROGRESS NOTES Date of Service DATE: 04/09/21 TIME: 13:14 Subjective Subjective Patient seen and examined Objective Objective Vital Signs Date Time Temp Pulse Resp B/P (MAP) Pulse Ox O2 Delivery O2 Flow Rate FiO2 04/09/21 11:00 97.4 123 21 148/94 (112) 99 Nasal Cannula 2.0 97.4 Intake and Output 04/09/21 07:00 Intake Total 550 ml Output Total 575 ml Balance -25 ml Intake Oral 550 ml Output Urine Total 575 ml Physical Exam Abdomen: Normal bowel sounds Heart: Other (Irregularly irregular rate of 120) General: mild distress Lungs: Other (Mildly decreased breath sounds. No wheezing.) Assessment Assessment Acute respiratory failure with CHF. Continues to gradually improve. Acute on chronic probable diastolic CHF. Mildly improved. PAFIB with RVR; oral Cardizem increased but patient's rate is still elevated. We will continue on Eliquis. Will start low-dose beta-blockers. The patient is followed at [facility]. SSS s/p PPM ([employer]). 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 Comment Review of Relevant I have reviewed the following items ian (where applicable) has been applied. Labs Laboratory Tests Test 04/07/21 16:32 04/07/21 20:11 04/08/21 04:30 04/08/21 07:04 Glucose (Fingerstick) 187 mg/dL (70-99) 164 mg/dL (70-99) 158 mg/dL (70-99) White Blood Count 6.9 x10^3/uL (4.0-11.0) Red Blood Count 3.63 x10^6/uL (3.50-5.40) Hemoglobin 10.2 g/dL (12.0-15.5) Hematocrit 33.4 % (36.0-47.0) Mean Corpuscular Volume 92 fL (79-100) Mean Corpuscular Hemoglobin 28 pg (25-35) Mean Corpuscular Hemoglobin Concent 31 g/dL (31-37) Red Cell Distribution Width 14.6 % (11.5-14.5) Platelet Count 242 x10^3/uL (140-400) Neutrophils (%) (Auto) 68 % (31-73) Lymphocytes (%) (Auto) 18 % (24-48) Monocytes (%) (Auto) 14 % (0-9) Eosinophils (%) (Auto) 1 % (0-3) Basophils (%) (Auto) 0 % (0-3) Neutrophils # (Auto) 4.7 x10^3/uL (1.8-7.7) Lymphocytes # (Auto) 1.2 x10^3/uL (1.0-4.8) Monocytes # (Auto) 0.9 x10^3/uL (0.0-1.1) Eosinophils # (Auto) 0.0 x10^3/uL (0.0-0.7) Basophils # (Auto) 0.0 x10^3/uL (0.0-0.2) Sodium Level 140 mmol/L (136-145) Potassium Level 4.8 mmol/L (3.5-5.1) Chloride Level 100 mmol/L (98-107) Carbon Dioxide Level 34 mmol/L (21-32) Anion Gap 6 (6-14) Blood Urea Nitrogen 58 mg/dL (7-20) Creatinine 2.3 mg/dL (0.6-1.0) Estimated GFR (Cockcroft-Gault) 20.2 Glucose Level 174 mg/dL (70-99) Calcium Level 8.9 mg/dL (8.5-10.1) Magnesium Level 2.1 mg/dL (1.8-2.4) Test 04/08/21 11:21 04/08/21 16:25 04/08/21 20:26 04/09/21 07:00 Glucose (Fingerstick) 190 mg/dL (70-99) 137 mg/dL (70-99) 188 mg/dL (70-99) Sodium Level 141 mmol/L (136-145) Potassium Level 5.5 mmol/L (3.5-5.1) Chloride Level 103 mmol/L (98-107) Carbon Dioxide Level 29 mmol/L (21-32) Anion Gap 9 (6-14) Blood Urea Nitrogen 50 mg/dL (7-20) Creatinine 1.6 mg/dL (0.6-1.0) Estimated GFR (Cockcroft-Gault) 30.6 Glucose Level 160 mg/dL (70-99) Calcium Level 8.9 mg/dL (8.5-10.1) Test 04/09/21 07:51 04/09/21 12:07 Glucose (Fingerstick) 163 mg/dL (70-99) 169 mg/dL (70-99) Laboratory Tests Test 04/08/21 16:25 04/08/21 20:26 04/09/21 07:00 04/09/21 07:51 Glucose (Fingerstick) 137 mg/dL (70-99) 188 mg/dL (70-99) 163 mg/dL (70-99) Sodium Level 141 mmol/L (136-145) Potassium Level 5.5 mmol/L (3.5-5.1) Chloride Level 103 mmol/L (98-107) Carbon Dioxide Level 29 mmol/L (21-32) Anion Gap 9 (6-14) Blood Urea Nitrogen 50 mg/dL (7-20) Creatinine 1.6 mg/dL (0.6-1.0) Estimated GFR (Cockcroft-Gault) 30.6 Glucose Level 160 mg/dL (70-99) Calcium Level 8.9 mg/dL (8.5-10.1) Test 04/09/21 12:07 Glucose (Fingerstick) 169 mg/dL (70-99) Medications Current Medications Apixaban (Eliquis) 2.5 mg BID PO Last administered on 04/09/21at 08:45; Start 04/05/21 at 21:00 Atorvastatin Calcium (Lipitor) 40 mg DAILY PO Last administered on 04/06/21at 08:29; Start 04/06/21 at 09:00; Stop 04/07/21 at 08:07; Status DC Calcium Carbonate/ Glycine (Oscal) 1,250 mg DAILY PO Last administered on 04/09/21at 08:45; Start 04/06/21 at 09:00 Diltiazem HCl (Cardizem 24hr Cd) 240 mg DAILY PO Last administered on 04/07/21at 09:04; Start 04/05/21 at 15:00; Stop 04/07/21 at 14:57; Status DC Gabapentin (Neurontin) 300 mg BID PO Last administered on 04/09/21 08:44; Start 04/05/21 at 21:00 Vitamin D (Vitamin D3) 2,000 unit DAILY PO Last administered on 04/09/21at 08:44; Start 04/06/21 at 09:00 Pantoprazole Sodium (Protonix) 40 mg DAILYAC PO Last administered on 04/09/21at 05:50; Start 04/06/21 at 07:30 Insulin Human Lispro (HumaLOG) 0-5 UNITS TIDWMEALS SQ Last administered on 04/09/21at 13:04; Start 04/05/21 at 17:00 Dextrose (Dextrose 50%-Water Syringe) 12.5 gm PRN Q15MIN PRN IV SEE COMMENTS; Start 04/05/21 at 12:30; Stop 04/05/21 at 13:33; Status DC Ceftriaxone Sodium (Rocephin) 1 gm Q24H IVP Last administered on 04/09/21at 12:56; Start 04/05/21 at 13:00 Doxycycline Hyclate (Vibra-Tab) 100 mg BID PO Last administered on 04/09/21at 08:44; Start 04/05/21 at 21:00 Sennosides (Senna) 17.2 mg PRN BID PRN PO CONSTIPATION; Start 04/05/21 at 12:45 Docusate Sodium (Colace) 100 mg PRN DAILY PRN PO HARD STOOLS; Start 04/05/21 at 12:45 Ondansetron HCl (Zofran) 4 mg PRN Q6HRS PRN IVP NAUSEA/VOMITING, 1st CHOICE; Start 04/05/21 at 12:45 Dextrose (Dextrose 50%-Water Syringe) 12.5 gm PRN Q15MIN PRN IV SEE COMMENTS; Start 04/05/21 at 12:45 Acetaminophen (Tylenol) 650 mg PRN Q4HRS PRN PO TEMP OVER 100.4F OR MILD PAIN; Start 04/05/21 at 12:45 Lorazepam (Ativan) 0.5 mg PRN Q6HRS PRN PO ANXIETY / AGITATION; Start 04/05/21 at 12:45 Lorazepam (Ativan Inj) 0.25 mg PRN Q4HRS PRN IV ANXIETY / AGITATION Last administered on 04/06/21at 14:38; Start 04/05/21 at 12:45 Prochlorperazine Edisylate (Compazine) 10 mg PRN Q6HRS PRN IV NAUSEA/VOMITING, 2nd CHOICE; Start 04/05/21 at 12:45 Diphenhydramine HCl (Benadryl) 25 mg PRN Q6HRS PRN IVP ITCHING; Start 04/05/21 at 12:45 Diphenhydramine HCl (Benadryl) 25 mg PRN Q6HRS PRN PO ITCHING; Start 04/05/21 at 12:45 Diphenhydramine HCl (Benadryl) 25 mg PRN QHS PRN PO INSOMNIA, 1st CHOICE; Start 04/05/21 at 12:45 Zolpidem Tartrate (Ambien) 2.5 mg PRN QHS PRN PO INSOMNIA, 2nd CHOICE; Start 04/05/21 at 12:45 Furosemide (Lasix) 40 mg 1X ONCE IVP Last administered on 04/05/21at 14:42; Start 04/05/21 at 14:45; Stop 04/05/21 at 14:46; Status DC Diltiazem HCl 125 mg/Sodium Chloride 125 ml @ 5 mls/hr CONT PRN IV PER PROTOCOL; Start 04/05/21 at 17:00; Stop 04/05/21 at 16:52; Status DC Diltiazem HCl 125 mg/Dextrose 125 ml @ 5 mls/hr CONT PRN IV PER PROTOCOL Last administered on 04/06/21at 13:07; Start 04/05/21 at 17:00; Stop 04/07/21 at 01:01; Status DC Lactobacillus Rhamnosus (Culturelle) 1 cap BID PO Last administered on 04/09/21at 08:44; Start 04/06/21 at 21:00 Furosemide (Lasix) 40 mg DAILY IVP Last administered on 04/07/21at 09:05; Start 04/06/21 at 16:00; Stop 04/07/21 at 10:44; Status DC Metoprolol Tartrate (Lopressor Vial) 5 mg 1X ONCE IVP Last administered on 04/06/21at 17:33; Start 04/06/21 at 16:00; Stop 04/06/21 at 16:01; Status DC Potassium Chloride (Klor-Con) 20 meq DAILYWBKFT PO Last administered on 04/08/21at 08:05; Start 04/06/21 at 16:00; Stop 04/08/21 at 13:11; Status DC Atorvastatin Calcium (Lipitor) 40 mg QHS PO Last administered on 04/08/21at 20:2 7; Start 04/07/21 at 21:00 Sodium Chloride 1,000 ml @ 125 mls/hr 1X ONCE IV Last administered on 04/07/21at 11:15; Start 04/07/21 at 11:15; Stop 04/07/21 at 19:14; Status DC Diltiazem HCl (Cardizem 24hr Cd) 300 mg DAILY PO Last administered on 04/09/21at 08:44; Start 04/08/21 at 09:00 Diltiazem HCl (Cardizem) 60 mg 1X ONCE PO Last administered on 04/07/21at 15:26; Start 04/07/21 at 15:00; Stop 04/07/21 at 15:01; Status DC Sodium Chloride 1,000 ml @ 75 mls/hr [id number] IV Last administered on 04/09/21at 00:02; Start 04/08/21 at 12:00 Active Scripts Active Doxycycline Hyclate 100 Mg Tablet 100 Mg PO BID Reported Ibandronate Sodium 150 Mg Tablet 1 Tab PO QMONTH 30 Days Methimazole 5 Mg Tablet 5 Mg PO DAILY Januvia (Sitagliptin Phosphate) 100 Mg Tablet 1 Tab PO DAILY Diltiazem 24Hr Cd (Diltiazem HCl) 240 Mg Cap.er.24h 240 Mg PO DAILY Calcium Carbonate 500 Mg Tablet 1,250 Mg PO DAILY 30 Days Namenda (Memantine Hcl) 10 Mg Tablet 5 Mg PO BID Eliquis (Apixaban) 2.5 Mg Tablet 2.5 Mg PO BID Atorvastatin Calcium 40 Mg Tablet 1 Tab PO DAILY Thera-D (Cholecalciferol (Vitamin D3)) 100 Mcg Tablet 2,000 Units PO DAILY Acetaminophen 325 Mg Tablet 2 Tab PO PRN Q4-6HRS PRN 24 Days Lasix (Furosemide) 40 Mg Tablet 40 Mg PO BID Omeprazole 20 Mg Capsule.dr 20 Mg PO DAILY Gabapentin (Gabapentin) 300 Mg Capsule 300 Mg PO BID Vitals/I & O Vital Sign - Last 24 Hours 04/08/21 04/08/21 04/08/21 04/08/21 14:17 19:06 19:15 23:05 Temp 97.2 97.8 97.3 97.2 97.8 97.3 Pulse 109 130 130 Resp B/P (MAP) 137/60 (85) 119/75 (90) 119/70 (86) Pulse Ox 94 96 95 O2 Delivery Nasal Cannula Nasal Cannula Nasal Cannula Nasal Cannula O2 Flow Rate 2.0 2.0 2.0 2.0 04/09/21 04/09/21 04/09/21 04/09/21 03:05 07:00 08:00 08:44 Temp 97.6 97.9 97.6 97.9 Pulse 131 140 140 Resp 21 21 B/P (MAP) 125/80 (95) 140/76 (97) 140/76 Pulse Ox 95 97 O2 Delivery Nasal Cannula Nasal Cannula Nasal Cannula O2 Flow Rate 2.0 2.0 2.0 04/09/21 11:00 Temp 97.4 97.4 Pulse 123 Resp 21 B/P (MAP) 148/94 (112) Pulse Ox 99 O2 Delivery Nasal Cannula O2 Flow Rate 2.0 Intake and Output 04/08/21 04/08/21 04/09/21 15:00 23:00 07:00 Intake Total 450 ml 100 ml Output Total 75 ml 500 ml Balance 375 ml -400 ml Justifications for Admission Other Justification Pneumonia and A. fib RVR YOU MOSES MD Apr 09, 2021 13:15
--- NOTE | 2021-04-09 13:50 | PDOC ---
DATE OF SERVICE DATE: 04/09/21 TIME: 13:48 SUBJECTIVE ROS Stable OBJECTIVE Vital Signs Vital Signs Date Time Temp Pulse Resp B/P (MAP) Pulse Ox O2 Delivery O2 Flow Rate FiO2 04/09/21 11:00 97.4 123 21 148/94 (112) 99 Nasal Cannula 2.0 97.4 I & 0 Intake and Output 04/09/21 07:00 Intake Total 550 ml Output Total 575 ml Balance -25 ml Intake Oral 550 ml Output Urine Total 575 ml PHYSICAL EXAM Physical Exam General: Alert, Cooperative, No acute distress, HEEN OM moist. On O2 by NC Neck supple Lungs: diminished bases, non labored Heart: (AFIB) Abdomen: Soft, obese, NT Extremities: trace bilateral LE edema Skin: No significant lesion, No rash Neuro: Normal speech, Sensation intact, grossly normal Psych/Mental Status: ? baseline dementia No Turner, No CVA or SP tenderness DIAGNOSIS/ASSESSMENT Assessment & Plan MACK - ATN/Cardiorenal , Non Oliguric , E-Lytes stable, Improving renal function Supportive care, maintain fluid balance, strict I/O, daily standing weight avoid Nephrotoxins . Probably baseline CKD, no labs available in [facility] records HyperKalemia- Mild; Kayexalate x 1 Acute respiratory failure with CHF, RVR Acute on chronic probable diastolic CHF; improved s/p IV diuresis PAFIB with RVR; on Cardizem gtt for rate control and Eliquis for stroke prophylaxis. Follows with [facility] cardiology. Rate mildly elevated SSS s/p PPM intermittent v-pacing Hypertension; controlled Diabetes, II Dementia COMMENT/RELEVANT DATA Meds Current Medications Medications (Trade) Dose Ordered Sig/Elena Start Time Stop Time Status Last Admin Dose Admin Acetaminophen (Tylenol) 650 mg PRN Q4HRS PRN 04/05/21 12:45 Apixaban (Eliquis) 2.5 mg BID 04/05/21 21:00 04/09/21 08:45 2.5 MG Atorvastatin Calcium (Lipitor) 40 mg QHS 04/07/21 21:00 04/08/21 20:27 40 MG Calcium Carbonate/ Glycine (Oscal) 1,250 mg DAILY 04/06/21 09:00 04/09/21 08:45 1,250 MG Ceftriaxone Sodium (Rocephin) 1 gm Q24H 04/05/21 13:00 04/09/21 12:56 1 GM Dextrose (Dextrose 50%-Water Syringe) 12.5 gm PRN Q15MIN PRN 04/05/21 12:45 Diltiazem HCl (Cardizem 24hr Cd) 300 mg DAILY 04/08/21 09:00 04/09/21 08:44 300 MG Diltiazem HCl (Cardizem) 60 mg 1X ONCE 04/07/21 15:00 04/07/21 15:01 DC 04/07/21 15:26 60 MG Diltiazem HCl 125 mg/Dextrose 125 ml @ 5 mls/hr CONT PRN 04/05/21 17:00 04/07/21 01:01 DC 04/06/21 13:07 15 MLS/HR Diltiazem HCl 125 mg/Sodium Chloride 125 ml @ 5 mls/hr CONT PRN 04/05/21 17:00 04/05/21 16:52 DC Diphenhydramine HCl (Benadryl) 25 mg PRN QHS PRN 04/05/21 12:45 Docusate Sodium (Colace) 100 mg PRN DAILY PRN 04/05/21 12:45 Doxycycline Hyclate (Vibra-Tab) 100 mg BID 04/05/21 21:00 04/09/21 08:44 100 MG Furosemide (Lasix) 40 mg DAILY 04/06/21 16:00 04/07/21 10:44 DC 04/07/21 09:05 40 MG Gabapentin (Neurontin) 300 mg BID 04/05/21 21:00 04/09/21 08:44 300 MG Insulin Human Lispro (HumaLOG) 0-5 UNITS TIDWMEALS 04/05/21 17:00 04/09/21 13:04 2 UNITS Lactobacillus Rhamnosus (Culturelle) 1 cap BID 04/06/21 21:00 04/09/21 08:44 1 CAP Lorazepam (Ativan Inj) 0.25 mg PRN Q4HRS PRN 04/05/21 12:45 04/06/21 14:38 0.25 MG Lorazepam (Ativan) 0.5 mg PRN Q6HRS PRN 04/05/21 12:45 Metoprolol Tartrate (Lopressor Vial) 5 mg 1X ONCE 04/06/21 16:00 04/06/21 16:01 DC 04/06/21 17:33 5 MG Metoprolol Tartrate (Lopressor) 25 mg BID 04/09/21 14:00 Ondansetron HCl (Zofran) 4 mg PRN Q6HRS PRN 04/05/21 12:45 Pantoprazole Sodium (Protonix) 40 mg DAILYAC 04/06/21 07:30 04/09/21 05:50 40 MG Potassium Chloride (Klor-Con) 20 meq [id number] 04/06/21 16:00 04/08/21 13:11 DC 04/08/21 08:05 20 MEQ Prochlorperazine Edisylate (Compazine) 10 mg PRN Q6HRS PRN 04/05/21 12:45 Sennosides (Senna) 17.2 mg PRN BID PRN 04/05/21 12:45 Sodium Chloride 1,000 ml @ 75 mls/hr [id number] 04/08/21 12:00 04/09/21 00:02 75 MLS/HR Vitamin D (Vitamin D3) 2,000 unit DAILY 04/06/21 09:00 04/09/21 08:44 2,000 UNIT Zolpidem Tartrate (Ambien) 2.5 mg PRN QHS PRN 04/05/21 12:45 Lab Laboratory Tests Test 04/08/21 16:25 04/08/21 20:26 04/09/21 07:00 04/09/21 07:51 Glucose (Fingerstick) 137 mg/dL (70-99) 188 mg/dL (70-99) 163 mg/dL (70-99) Sodium Level 141 mmol/L (136-145) Potassium Level 5.5 mmol/L (3.5-5.1) Chloride Level 103 mmol/L (98-107) Carbon Dioxide Level 29 mmol/L (21-32) Anion Gap 9 (6-14) Blood Urea Nitrogen 50 mg/dL (7-20) Creatinine 1.6 mg/dL (0.6-1.0) Estimated GFR (Cockcroft-Gault) 30.6 Glucose Level 160 mg/dL (70-99) Calcium Level 8.9 mg/dL (8.5-10.1) Test 04/09/21 12:07 Glucose (Fingerstick) 169 mg/dL (70-99) Results All relevant outside records, renal labs, imaging studies, telemetry/EKG's were reviewed. Justicifation of Admission Dx: Justifications for Admission: Justification of Admission Dx: Yes CHF: Cardiac Arrhythmias TAI MINER MD Apr 09, 2021 13:50
[2021-04-09 15:00] VITALS: BP 171/64
[2021-04-09] MEDS ORDERED: SODIUM POLYSTYRENE SULFON/SORB 15 GM/60 ML ORAL.SUSP. PO ONE (15:00)
[2021-04-09] MEDS: METOPROLOL TART IMMED RELEASE 25 MG TABLET. PO SCH ×2 (15:02→20:35)
--- NOTE | 2021-04-09 18:27 | PDOC ---
[employer] PROGRESS NOTE Date of Service DOS: DATE: 04/09/21 TIME: 18:27 Chief Complaint Chief Complaint Acute respiratory failure with CHF, RVR 2. Acute on chronic probable diastolic CHF 3. PAFIB with RVR; on Cardizem gtt for rate control. Eliquis for stroke prophylaxis. Follows with [facility] cardiology. 4. SSS s/p PPM (Medtr[employer]). intermittent v-pacing 6. Hypertension; controlled 7. Hyperlipidemia; statin 8. MACK on CKD 9. Diabetes, II 10. Hyperthyroidism; on methimazole. 12. Dementia History of Present Illness History of Present Illness 04/09, cont to [facility] on sunday renal fxn not fully improved with IV fluid yesterday, consult renal, give additional fluid today out of bed, PT and Ot to skilled soon, creatinine baseline 1.5 overdiuesed, cr upp to 2.4 will give a liter NS, hold lasix, delicate balance of cardiac and renal fxn try to DC to skilled tomrrow cont current Vitals/I&O Vitals/I&O: Vital Signs Date Time Temp Pulse Resp B/P (MAP) Pulse Ox O2 Delivery O2 Flow Rate FiO2 04/09/21 15:02 123 148/94 04/09/21 15:00 97.5 21 93 Nasal Cannula 2.0 97.5 I & O 04/08/21 04/08/21 04/09/21 15:00 23:00 07:00 Intake Total 450 ml 100 ml Output Total 75 ml 500 ml Balance 375 ml -400 ml Physical Exam General: mild distress Heart: Other (Irregularly irregular rate of 120) Lungs: Clear Abdomen: Normal bowel sounds Extremities: Other (2+ bilateral LE edema ) Skin: No rashes, No breakdown, No significant lesion Labs Labs: Laboratory Tests Test 04/08/21 20:26 04/09/21 07:00 04/09/21 07:51 04/09/21 12:07 Glucose (Fingerstick) 188 mg/dL (70-99) 163 mg/dL (70-99) 169 mg/dL (70-99) Sodium Level 141 mmol/L (136-145) Potassium Level 5.5 mmol/L (3.5-5.1) Chloride Level 103 mmol/L (98-107) Carbon Dioxide Level 29 mmol/L (21-32) Anion Gap 9 (6-14) Blood Urea Nitrogen 50 mg/dL (7-20) Creatinine 1.6 mg/dL (0.6-1.0) Estimated GFR (Cockcroft-Gault) 30.6 Glucose Level 160 mg/dL (70-99) Calcium Level 8.9 mg/dL (8.5-10.1) Test 04/09/21 17:09 Glucose (Fingerstick) 164 mg/dL (70-99) Comment Review of Relevant I have reviewed the following items ian (where applicable) has been applied. Medications: Current Medications Medications (Trade) Dose Ordered Sig/Elena Route PRN Reason Start Time Stop Time Status Last Admin Dose Admin Metoprolol Tartrate (Lopressor) 25 mg BID PO 04/09/21 14:00 04/09/21 15:02 Sodium Polystyrene Sulfonate (Kayexalate) 15 gm 1X ONCE PO 04/09/21 15:00 04/09/21 15:01 DC 04/09/21 15:02 Justifications for Admission Other Justification Pneumonia and A. fib RVR RAQUEL CRISTOBAL MD Apr 09, 2021 18:27
[2021-04-09 19:23] VITALS: BP 128/74
[2021-04-09] MEDS: ATORVASTATIN CALCIUM 40 MG TABLET. PO SCH (20:35)
[2021-04-09 22:32] VITALS: BP 113/68
[2021-04-10 02:46] VITALS: BP 154/69
[2021-04-10] MEDS: IV NORMAL SALINE 1000ML BAG 1,000 ML IV SCH ×2 (04:00→17:20)
[2021-04-10 05:36] LABS: CALCIUM 8.6 mg/dL (8.5-10.1); CREATININE 1.4 mg/dL (0.6-1.0); GFR 35.7
[2021-04-10 05:39] LABS: POTASSIUM 4.9 mmol/L (3.5-5.1)
[2021-04-10] MEDS: PANTOPRAZOLE 40 MG TABLET.DR. PO SCH (05:54)
[2021-04-10 06:19] VITALS: BP 189/86
[2021-04-10] MEDS: INSULIN LISPRO 300 UNITS/3 ML VIAL. SQ SCH ×3 (08:00→17:00)
[2021-04-10] MEDS: DOXYCYCLINE HYCLATE 100 MG TABLET PO SCH ×2 (08:29→21:47)
[2021-04-10] MEDS: METOPROLOL TART IMMED RELEASE 25 MG TABLET. PO SCH ×2 (08:29→21:46)
[2021-04-10] MEDS: APIXABAN 2.5 MG TABLET. PO SCH ×2 (08:29→21:40)
[2021-04-10] MEDS: LACTOBACILLUS RHAMNOSUS GG 1 CAPSULE. PO SCH ×2 (08:30→21:47)
[2021-04-10] MEDS: CALCIUM CARBONATE 500 MG TABLET PO SCH (08:30)
[2021-04-10] MEDS: GABAPENTIN 300 MG CAPSULE. PO SCH ×2 (08:30→21:41)
[2021-04-10] MEDS: CHOLECALCIFEROL (VITAMIN D3) 1,000 UNIT TABLET PO SCH (08:30)
--- NOTE | 2021-04-10 08:41 | NUR ---
0800 insulin not administered due to pt refusing breakfast this am
[2021-04-10 10:59] VITALS: BP 103/61
--- NOTE | 2021-04-10 12:31 | PDOC ---
[employer] PROGRESS NOTE Date of Service DOS: DATE: 04/10/21 TIME: 12:31 Chief Complaint Chief Complaint Acute respiratory failure with CHF, RVR 2. Acute on chronic probable diastolic CHF 3. PAFIB with RVR; on Cardizem gtt for rate control. Eliquis for stroke prophylaxis. Follows with [facility] cardiology. 4. SSS s/p PPM (Medtronic). intermittent v-pacing 6. Hypertension; controlled 7. Hyperlipidemia; statin 8. MACK on CKD 9. Diabetes, II 10. Hyperthyroidism; on methimazole. 12. Dementia History of Present Illness History of Present Illness 04/10 renal fxn better to skilled, repeat COVID for clearance, she is better 04/09, cont to [facility] on sunday renal fxn not fully improved with IV fluid yesterday, consult renal, give additional fluid today out of bed, PT and Ot to skilled soon, creatinine baseline 1.5 overdiuesed, cr upp to 2.4 will give a liter NS, hold lasix, delicate balance of cardiac and renal fxn try to DC to skilled tomrrow cont current Vitals/I&O Vitals/I&O: Vital Signs Date Time Temp Pulse Resp B/P (MAP) Pulse Ox O2 Delivery O2 Flow Rate FiO2 04/10/21 10:59 97.3 102 20 103/61 (75) 93 Nasal Cannula 2.0 97.3 I & O 04/09/21 04/09/21 04/10/21 15:00 23:00 07:00 Intake Total 300 ml 0 ml Output Total 0 ml 360 ml 400 ml Balance 0 ml -60 ml -400 ml Physical Exam General: mild distress Heart: Other (Irregularly irregular rate of 120) Lungs: Clear Abdomen: Normal bowel sounds Extremities: Other (2+ bilateral LE edema ) Skin: No rashes, No breakdown, No significant lesion Labs Labs: Laboratory Tests Test 04/09/21 17:09 04/09/21 20:36 04/10/21 04:00 04/10/21 07:15 Glucose (Fingerstick) 164 mg/dL (70-99) 161 mg/dL (70-99) 157 mg/dL (70-99) Sodium Level 141 mmol/L (136-145) Potassium Level 4.9 mmol/L (3.5-5.1) Chloride Level 106 mmol/L (98-107) Carbon Dioxide Level 27 mmol/L (21-32) Anion Gap 8 (6-14) Blood Urea Nitrogen 44 mg/dL (7-20) Creatinine 1.4 mg/dL (0.6-1.0) Estimated GFR (Cockcroft-Gault) 35.7 Glucose Level 158 mg/dL (70-99) Calcium Level 8.6 mg/dL (8.5-10.1) Test 04/10/21 11:26 Glucose (Fingerstick) 150 mg/dL (70-99) Comment Review of Relevant I have reviewed the following items ian (where applicable) has been applied. Medications: Current Medications Medications (Trade) Dose Ordered Sig/Elena Route PRN Reason Start Time Stop Time Status Last Admin Dose Admin Metoprolol Tartrate (Lopressor) 25 mg BID PO 04/09/21 14:00 04/10/21 08:29 Sodium Polystyrene Sulfonate (Kayexalate) 15 gm 1X ONCE PO 04/09/21 15:00 04/09/21 15:01 DC 04/09/21 15:02 Justifications for Admission Other Justification Pneumonia and A. fib RVR RAQUEL CRISTOBAL MD Apr 10, 2021 12:31
--- NOTE | 2021-04-10 13:22 | PDOC ---
DATE OF SERVICE DATE: 04/10/21 TIME: 13:20 SUBJECTIVE ROS Stable .No complaints OBJECTIVE Vital Signs Vital Signs Date Time Temp Pulse Resp B/P (MAP) Pulse Ox O2 Delivery O2 Flow Rate FiO2 04/10/21 10:59 97.3 102 20 103/61 (75) 93 Nasal Cannula 2.0 97.3 I & 0 Intake and Output 04/10/21 07:00 Intake Total 300 ml Output Total 760 ml Balance -460 ml Intake Oral 300 ml Output Urine Total 760 ml # Bowel Movements 1 PHYSICAL EXAM Physical Exam General: Alert, Cooperative, No acute distress, HEEN OM moist. On O2 by NC Neck supple Lungs: diminished bases, non labored Heart: (AFIB) Abdomen: Soft, obese, NT Extremities: trace bilateral LE edema Skin: No significant lesion, No rash Neuro: Normal speech, Sensation intact, grossly normal Psych/Mental Status: ? baseline dementia No Turner, No CVA or SP tenderness DIAGNOSIS/ASSESSMENT Assessment & Plan MACK - ATN/Cardiorenal , Non Oliguric , E-Lytes stable, Improving renal function Supportive care, maintain fluid balance, strict I/O, daily standing weight avoid Nephrotoxins . Probably baseline CKD, no labs available in [facility] records HyperKalemia- resolved Acute respiratory failure with CHF, RVR Acute on chronic probable diastolic CHF; improved s/p IV diuresis PAFIB with RVR; on Cardizem gtt for rate control and Eliquis for stroke prophylaxis. Follows with [facility] cardiology. Rate mildly elevated SSS s/p PPM intermittent v-pacing Hypertension; controlled Diabetes, II Dementia COMMENT/RELEVANT DATA Meds Current Medications Medications (Trade) Dose Ordered Sig/Elena Start Time Stop Time Status Last Admin Dose Admin Acetaminophen (Tylenol) 650 mg PRN Q4HRS PRN 04/05/21 12:45 Apixaban (Eliquis) 2.5 mg BID 04/05/21 21:00 04/10/21 08:29 2.5 MG Atorvastatin Calcium (Lipitor) 40 mg QHS 04/07/21 21:00 04/09/21 20:35 40 MG Calcium Carbonate/ Glycine (Oscal) 1,250 mg DAILY 04/06/21 09:00 04/10/21 08:30 1,250 MG Ceftriaxone Sodium (Rocephin) 1 gm Q24H 04/05/21 13:00 04/09/21 12:56 1 GM Dextrose (Dextrose 50%-Water Syringe) 12.5 gm PRN Q15MIN PRN 04/05/21 12:45 Diltiazem HCl (Cardizem 24hr Cd) 300 mg DAILY 04/08/21 09:00 04/10/21 08:28 300 MG Diltiazem HCl (Cardizem) 60 mg 1X ONCE 04/07/21 15:00 04/07/21 15:01 DC 04/07/21 15:26 60 MG Diltiazem HCl 125 mg/Dextrose 125 ml @ 5 mls/hr CONT PRN 04/05/21 17:00 04/07/21 01:01 DC 04/06/21 13:07 15 MLS/HR Diltiazem HCl 125 mg/Sodium Chloride 125 ml @ 5 mls/hr CONT PRN 04/05/21 17:00 04/05/21 16:52 DC Diphenhydramine HCl (Benadryl) 25 mg PRN QHS PRN 04/05/21 12:45 Docusate Sodium (Colace) 100 mg PRN DAILY PRN 04/05/21 12:45 Doxycycline Hyclate (Vibra-Tab) 100 mg BID 04/05/21 21:00 04/10/21 08:29 100 MG Furosemide (Lasix) 40 mg DAILY 04/06/21 16:00 04/07/21 10:44 DC 04/07/21 09:05 40 MG Gabapentin (Neurontin) 300 mg BID 04/05/21 21:00 04/10/21 08:30 300 MG Insulin Human Lispro (HumaLOG) 0-5 UNITS TIDWMEALS 04/05/21 17:00 04/09/21 17:37 2 UNITS Lactobacillus Rhamnosus (Culturelle) 1 cap BID 04/06/21 21:00 04/10/21 08:30 1 CAP Lorazepam (Ativan Inj) 0.25 mg PRN Q4HRS PRN 04/05/21 12:45 04/06/21 14:38 0.25 MG Lorazepam (Ativan) 0.5 mg PRN Q6HRS PRN 04/05/21 12:45 Metoprolol Tartrate (Lopressor Vial) 5 mg 1X ONCE 04/06/21 16:00 04/06/21 16:01 DC 04/06/21 17:33 5 MG Metoprolol Tartrate (Lopressor) 25 mg BID 04/09/21 14:00 04/10/21 08:29 25 MG Ondansetron HCl (Zofran) 4 mg PRN Q6HRS PRN 04/05/21 12:45 Pantoprazole Sodium (Protonix) 40 mg DAILYAC 04/06/21 07:30 04/10/21 05:54 40 MG Potassium Chloride (Klor-Con) 20 meq [id number] 04/06/21 16:00 04/08/21 13:11 DC 04/08/21 08:05 20 MEQ Prochlorperazine Edisylate (Compazine) 10 mg PRN Q6HRS PRN 04/05/21 12:45 Sennosides (Senna) 17.2 mg PRN BID PRN 04/05/21 12:45 Sodium Polystyrene Sulfonate (Kayexalate) 15 gm 1X ONCE 04/09/21 15:00 04/09/21 15:01 DC 04/09/21 15:02 15 GM Sodium Chloride 1,000 ml @ 75 mls/hr [id number] 04/08/21 12:00 04/10/21 04:00 75 MLS/HR Vitamin D (Vitamin D3) 2,000 unit DAILY 04/06/21 09:00 04/10/21 08:30 2,000 UNIT Zolpidem Tartrate (Ambien) 2.5 mg PRN QHS PRN 04/05/21 12:45 Lab Laboratory Tests Test 04/09/21 17:09 04/09/21 20:36 04/10/21 04:00 04/10/21 07:15 Glucose (Fingerstick) 164 mg/dL (70-99) 161 mg/dL (70-99) 157 mg/dL (70-99) Sodium Level 141 mmol/L (136-145) Potassium Level 4.9 mmol/L (3.5-5.1) Chloride Level 106 mmol/L (98-107) Carbon Dioxide Level 27 mmol/L (21-32) Anion Gap 8 (6-14) Blood Urea Nitrogen 44 mg/dL (7-20) Creatinine 1.4 mg/dL (0.6-1.0) Estimated GFR (Cockcroft-Gault) 35.7 Glucose Level 158 mg/dL (70-99) Calcium Level 8.6 mg/dL (8.5-10.1) Test 04/10/21 11:26 Glucose (Fingerstick) 150 mg/dL (70-99) Results All relevant outside records, renal labs, imaging studies, telemetry/EKG's were reviewed. Justicifation of Admission Dx: Justifications for Admission: Justification of Admission Dx: Yes CHF: Cardiac Arrhythmias TAI MINER MD Apr 10, 2021 13:21
--- NOTE | 2021-04-10 14:33 | PDOC ---
PROGRESS NOTES Date of Service DATE: 04/10/21 TIME: 14:31 Subjective Subjective Patient seen and examined Objective Objective Vital Signs Date Time Temp Pulse Resp B/P (MAP) Pulse Ox O2 Delivery O2 Flow Rate FiO2 04/10/21 10:59 97.3 102 20 103/61 (75) 93 Nasal Cannula 2.0 97.3 Intake and Output 04/10/21 07:00 Intake Total 300 ml Output Total 760 ml Balance -460 ml Intake Oral 300 ml Output Urine Total 760 ml # Bowel Movements 1 Physical Exam Abdomen: Normal bowel sounds Heart: Other (Irregularly irregular) General: mild distress Lungs: Other (Mildly decreased breath sounds) Assessment Assessment Acute respiratory failure with CHF. Continues to gradually improve. Acute on chronic probable diastolic CHF. Mildly improved. PAFIB with RVR; oral Cardizem increased. Beta-blockers added yesterday with rate improvement. We will continue on Eliquis. The patient is followed at [facility]. SSS s/p PPM (Medtronic). intermittent v-pacing Hypertension; controlled Hyperlipidemia; statin MACK on CKD potassium of 4.9 with creatinine of 1.4. Diabetes, II Hyperthyroidism; on methimazole. Comment Review of Relevant I have reviewed the following items ian (where applicable) has been applied. Labs Laboratory Tests Test 04/08/21 16:25 04/08/21 20:26 04/09/21 07:00 04/09/21 07:51 Glucose (Fingerstick) 137 mg/dL (70-99) 188 mg/dL (70-99) 163 mg/dL (70-99) Sodium Level 141 mmol/L (136-145) Potassium Level 5.5 mmol/L (3.5-5.1) Chloride Level 103 mmol/L (98-107) Carbon Dioxide Level 29 mmol/L (21-32) Anion Gap 9 (6-14) Blood Urea Nitrogen 50 mg/dL (7-20) Creatinine 1.6 mg/dL (0.6-1.0) Estimated GFR (Cockcroft-Gault) 30.6 Glucose Level 160 mg/dL (70-99) Calcium Level 8.9 mg/dL (8.5-10.1) Test 04/09/21 12:07 04/09/21 17:09 04/09/21 20:36 04/10/21 04:00 Glucose (Fingerstick) 169 mg/dL (70-99) 164 mg/dL (70-99) 161 mg/dL (70-99) Sodium Level 141 mmol/L (136-145) Potassium Level 4.9 mmol/L (3.5-5.1) Chloride Level 106 mmol/L (98-107) Carbon Dioxide Level 27 mmol/L (21-32) Anion Gap 8 (6-14) Blood Urea Nitrogen 44 mg/dL (7-20) Creatinine 1.4 mg/dL (0.6-1.0) Estimated GFR (Cockcroft-Gault) 35.7 Glucose Level 158 mg/dL (70-99) Calcium Level 8.6 mg/dL (8.5-10.1) Test 04/10/21 07:15 04/10/21 11:26 Glucose (Fingerstick) 157 mg/dL (70-99) 150 mg/dL (70-99) Laboratory Tests Test 04/09/21 17:09 04/09/21 20:36 04/10/21 04:00 04/10/21 07:15 Glucose (Fingerstick) 164 mg/dL (70-99) 161 mg/dL (70-99) 157 mg/dL (70-99) Sodium Level 141 mmol/L (136-145) Potassium Level 4.9 mmol/L (3.5-5.1) Chloride Level 106 mmol/L (98-107) Carbon Dioxide Level 27 mmol/L (21-32) Anion Gap 8 (6-14) Blood Urea Nitrogen 44 mg/dL (7-20) Creatinine 1.4 mg/dL (0.6-1.0) Estimated GFR (Cockcroft-Gault) 35.7 Glucose Level 158 mg/dL (70-99) Calcium Level 8.6 mg/dL (8.5-10.1) Test 04/10/21 11:26 Glucose (Fingerstick) 150 mg/dL (70-99) Medications Current Medications Apixaban (Eliquis) 2.5 mg BID PO Last administered on 04/10/21at 08:29; Start 04/05/21 at 21:00 Atorvastatin Calcium (Lipitor) 40 mg DAILY PO Last administered on 04/06/21at 08:29; Start 04/06/21 at 09:00; Stop 04/07/21 at 08:07; Status DC Calcium Carbonate/ Glycine (Oscal) 1,250 mg DAILY PO Last administered on 04/10/21at 08:30; Start 04/06/21 at 09:00 Diltiazem HCl (Cardizem 24hr Cd) 240 mg DAILY PO Last administered on 04/07/21at 09:04; Start 04/05/21 at 15:00; Stop 04/07/21 at 14:57; Status DC Gabapentin (Neurontin) 300 mg BID PO Last administered on 04/10/21at 08:30; Start 04/05/21 at 21:00 Vitamin D (Vitamin D3) 2,000 unit DAILY PO Last administered on 04/10/21at 08:30; Start 04/06/21 at 09:00 Pantoprazole Sodium (Protonix) 40 mg DAILYAC PO Last administered on 04/10/21at 05:54; Start 04/06/21 at 07:30 Insulin Human Lispro (HumaLOG) 0-5 UNITS TIDWMEALS SQ Last administered on 04/09at 17:37; Start 04/05/21 at 17:00 Dextrose (Dextrose 50%-Water Syringe) 12.5 gm PRN Q15MIN PRN IV SEE COMMENTS; Start 04/05/21 at 12:30; Stop 04/05/21 at 13:33; Status DC Ceftriaxone Sodium (Rocephin) 1 gm Q24H IVP Last administered on 04/09/21at 12:5 6; Start 04/05/21 at 13:00 Doxycycline Hyclate (Vibra-Tab) 100 mg BID PO Last administered on 04/10/21at 08:29; Start 04/05/21 at 21:00 Sennosides (Senna) 17.2 mg PRN BID PRN PO CONSTIPATION; Start 04/05/21 at 12:45 Docusate Sodium (Colace) 100 mg PRN DAILY PRN PO HARD STOOLS; Start 04/05/21 at 12:45 Ondansetron HCl (Zofran) 4 mg PRN Q6HRS PRN IVP NAUSEA/VOMITING, 1st CHOICE; S tart 04/05/21 at 12:45 Dextrose (Dextrose 50%-Water Syringe) 12.5 gm PRN Q15MIN PRN IV SEE COMMENTS; Start 04/05/21 at 12:45 Acetaminophen (Tylenol) 650 mg PRN Q4HRS PRN PO TEMP OVER 100.4F OR MILD PAIN; Start 04/05/21 at 12:45 Lorazepam (Ativan) 0.5 mg PRN Q6HRS PRN PO ANXIETY / AGITATION; Start 04/05/21 at 12:45 Lorazepam (Ativan Inj) 0.25 mg PRN Q4HRS PRN IV ANXIETY / AGITATION Last administered on 04/06/21at 14:38; Start 04/05/21 at 12:45 Prochlorperazine Edisylate (Compazine) 10 mg PRN Q6HRS PRN IV NAUSEA/VOMITING, 2nd CHOICE; Start 04/05/21 at 12:45 Diphenhydramine HCl (Benadryl) 25 mg PRN Q6HRS PRN IVP ITCHING; Start 04/05/21 at 12:45 Diphenhydramine HCl (Benadryl) 25 mg PRN Q6HRS PRN PO ITCHING; Start 04/05/21 at 12:45 Diphenhydramine HCl (Benadryl) 25 mg PRN QHS PRN PO INSOMNIA, 1st CHOICE; Start 04/05/21 at 12:45 Zolpidem Tartrate (Ambien) 2.5 mg PRN QHS PRN PO INSOMNIA, 2nd CHOICE; Start 04/05/21 at 12:45 Furosemide (Lasix) 40 mg 1X ONCE IVP Last administered on 04/05/21at 14:42; Start 04/05/21 at 14:45; Stop 04/05/21 at 14:46; Status DC Diltiazem HCl 125 mg/Sodium Chloride 125 ml @ 5 mls/hr CONT PRN IV PER PROTOC OL; Start 04/05/21 at 17:00; Stop 04/05/21 at 16:52; Status DC Diltiazem HCl 125 mg/Dextrose 125 ml @ 5 mls/hr CONT PRN IV PER PROTOCOL Last administered on 04/06/21at 13:07; Start 04/05/21 at 17:00; Stop 04/07/21 at 01:01; Status DC Lactobacillus Rhamnosus (Culturelle) 1 cap BID PO Last administered on 04/10/21at 08:30; Start 04/06/21 at 21:00 Furosemide (Lasix) 40 mg DAILY IVP Last administered on 04/07/21at 09:05; Start 04/06/21 at 16:00; Stop 04/07/21 at 10:44; Status DC Metoprolol Tartrate (Lopressor Vial) 5 mg 1X ONCE IVP Last administered on 04/06/21at 17:33; Start 04/06/21 at 16:00; Stop 04/06/21 at 16:01; Status DC Potassium Chloride (Klor-Con) 20 meq [id number] PO Last administered on 04/08/21at 08:05; Start 04/06/21 at 16:00; Stop 04/08/21 at 13:11; Status DC Atorvastatin Calcium (Lipitor) 40 mg QHS PO Last administered on 04/09/21at 20:35; Start 04/07/21 at 21:00 Sodium Chloride 1,000 ml @ 125 mls/hr 1X ONCE IV Last administered on 04/07/21at 11:15; Start 04/07/21 at 11:15; Stop 04/07/21 at 19:14; Status DC Diltiazem HCl (Cardizem 24hr Cd) 300 mg DAILY PO Last administered on 04/10/21at 08:28; Start 04/08/21 at 09:00 Diltiazem HCl (Cardizem) 60 mg 1X ONCE PO Last administered on 04/07/21at 15:26; Start 04/07/21 at 15:00; Stop 04/07/21 at 15:01; Status DC Sodium Chloride 1,000 ml @ 75 mls/hr [id number] IV Last administered on 04/10/21at 04:00; Start 04/08/21 at 12:00 Metoprolol Tartrate (Lopressor) 25 mg BID PO Last administered on 04/10/21at 08:29; Start 04/09/21 at 14:00 Sodium Polystyrene Sulfonate (Kayexalate) 15 gm 1X ONCE PO Last administered on 04/09/21at 15:02; Start 04/09/21 at 15:00; Stop 04/09/21 at 15:01; Status DC Active Scripts Active Doxycycline Hyclate 100 Mg Tablet 100 Mg PO BID Reported Ibandronate Sodium 150 Mg Tablet 1 Tab PO QMONTH 30 Days Methimazole 5 Mg Tablet 5 Mg PO DAILY Januvia (Sitagliptin Phosphate) 100 Mg Tablet 1 Tab PO DAILY Diltiazem 24Hr Cd (Diltiazem HCl) 240 Mg Cap.er.24h 240 Mg PO DAILY Calcium Carbonate 500 Mg Tablet 1,250 Mg PO DAILY 30 Days Namenda (Memantine Hcl) 10 Mg Tablet 5 Mg PO BID Eliquis (Apixaban) 2.5 Mg Tablet 2.5 Mg PO BID Atorvastatin Calcium 40 Mg Tablet 1 Tab PO DAILY Thera-D (Cholecalciferol (Vitamin D3)) 100 Mcg Tablet 2,000 Units PO DAILY Acetaminophen 325 Mg Tablet 2 Tab PO PRN Q4-6HRS PRN 24 Days Lasix (Furosemide) 40 Mg Tablet 40 Mg PO BID Omeprazole 20 Mg Capsule.dr 20 Mg PO DAILY Gabapentin (Gabapentin) 300 Mg Capsule 300 Mg PO BID Vitals/I & O Vital Sign - Last 24 Hours 04/09/21 04/09/21 04/09/21 04/09/21 15:00 15:02 19:23 20:00 Temp 97.5 98.6 97.5 98.6 Pulse 105 123 103 Resp 21 20 B/P (MAP) 171/64 (99) 148/94 128/74 (92) Pulse Ox 93 97 O2 Delivery Nasal Cannula Nasal Cannula Nasal Cannula O2 Flow Rate 2.0 2.0 2.0 04/09/21 04/09/21 04/10/21 04/10/21 20:35 22:32 02:46 06:19 Temp 97.8 97.6 97.4 97.8 97.6 97.4 Pulse 103 111 119 97 Resp 18 18 20 B/P (MAP) 128/74 113/68 (83) 154/69 (97) 189/86 (120) Pulse Ox 99 99 96 O2 Delivery Nasal Cannula Nasal Cannula Nasal Cannula O2 Flow Rate 2.0 2.0 2.0 04/10/21 04/10/21 04/10/21 04/10/21 08:00 08:28 08:29 10:59 Temp 97.3 97.3 Pulse 97 97 102 Resp 20 B/P (MAP) 189/86 189/86 103/61 (75) Pulse Ox 93 O2 Delivery Nasal Cannula Nasal Cannula O2 Flow Rate 2.0 2.0 Intake and Output 04/09/21 04/09/21 04/10/21 15:00 23:00 07:00 Intake Total 300 ml 0 ml Output Total 0 ml 360 ml 400 ml Balance 0 ml -60 ml -400 ml Justifications for Admission Other Justification Pneumonia and A. fib RVR YOU MOSES MD Apr 10, 2021 14:33
[2021-04-10 15:00] VITALS: BP 182/103
[2021-04-10] MEDS ORDERED: FUROSEMIDE 20 MG/2 ML VIAL. IVP ONE (16:45)
[2021-04-10] MEDS: cefTRIAXone IV Push 1 GM VIAL. IVP SCH (16:55)
[2021-04-10 19:09] VITALS: BP 115/54
--- NOTE | 2021-04-10 20:51 | RAD ---
XR CHEST 1V Technique: PA and lateral views of the chest were obtained. Clinical History: Reason: worsening respiratory / Spl. Instructions: / History: Comparison: April 07, 2021. Findings: There is low lung volumes causing crowding of pulmonary vascular. There is patchy perihilar opacities bilaterally and there is obscuration of the left hemidiaphragm. The left-sided pacemaker and dorsal column stimulator are again seen. The heart is top normal limits in size. Impression: Small effusion and moderate bilateral pulmonary infiltrates likely secondary to CHF. This appears mil dly worse. Electronically signed by: David Saldaña III, MD (04/10/2021 8:49 PM) [facility]
[2021-04-10] MEDS: ATORVASTATIN CALCIUM 40 MG TABLET. PO SCH (21:46)
[2021-04-10 22:39] VITALS: BP 93/51
[2021-04-11] VITALS (7 sets, daily range): BP systolic 104–146; BP diastolic 53–103
[2021-04-11 05:14] LABS: BASO % 0 % (0-3); EOS # 0.1 x10^3/uL (0.0-0.7); EOS % 1 % (0-3); HEMATOCRIT 37.2 % (36.0-47.0); HEMOGLOBIN 11.2 g/dL (12.0-15.5); LYMPH # 1.2 x10^3/uL (1.0-4.8); LYMPH % 16 % (24-48); MEAN CORPUSCULAR HEMOGLOBIN 28 pg (25-35); MEAN CORPUSCULAR HGB CONC 30 g/dL (31-37); MEAN CORPUSCULAR VOLUME 93 fL (79-100); MONO # 0.7 x10^3/uL (0.0-1.1); MONO % 10 % (0-9); NEUT # 5.6 x10^3/uL (1.8-7.7); NEUT % 73 % (31-73); PLATELET COUNT 276 x10^3/uL (140-400); RED CELL DISTRIBUTION WIDTH 14.7 % (11.5-14.5); WHITE BLOOD COUNT 7.6 x10^3/uL (4.0-11.0)
[2021-04-11 05:34] LABS: ALBUMIN/GLOBULIN RATIO 0.8 (1.0-1.7); CALCIUM 9.1 mg/dL (8.5-10.1); CREATININE 1.5 mg/dL (0.6-1.0); TOTAL BILIRUBIN 0.3 mg/dL (0.2-1.0); TOTAL PROTEIN 6.9 g/dL (6.4-8.2)
[2021-04-11] MEDS: IV NORMAL SALINE 1000ML BAG 1,000 ML IV SCH (06:40)
[2021-04-11] MEDS: PANTOPRAZOLE 40 MG TABLET.DR. PO SCH (07:30)
[2021-04-11] MEDS: INSULIN LISPRO 300 UNITS/3 ML VIAL. SQ SCH ×3 (08:00→17:00)
[2021-04-11] MEDS: METOPROLOL TART IMMED RELEASE 25 MG TABLET. PO SCH (09:00)
[2021-04-11] MEDS: GABAPENTIN 300 MG CAPSULE. PO SCH ×2 (09:00→20:50)
[2021-04-11] MEDS: CALCIUM CARBONATE 500 MG TABLET PO SCH (09:00)
[2021-04-11] MEDS: LACTOBACILLUS RHAMNOSUS GG 1 CAPSULE. PO SCH ×2 (09:00→20:49)
[2021-04-11] MEDS: APIXABAN 2.5 MG TABLET. PO SCH ×2 (09:00→20:49)
[2021-04-11] MEDS: CHOLECALCIFEROL (VITAMIN D3) 1,000 UNIT TABLET PO SCH (09:00)
[2021-04-11] MEDS: DOXYCYCLINE HYCLATE 100 MG TABLET PO SCH ×2 (09:00→20:50)
--- NOTE | 2021-04-11 10:34 | PDOC ---
MONICO BENAVIDEZ FRAMEMAN 04/11/21 1034: CARDIO Progress Notes Date and Time Date of Service 04/11/21 Time of Evaluation 1030 Subjective Comments: patient with change in mentation. now presently somnolent Vitals Vitals Vital Signs Date Time Temp Pulse Resp B/P (MAP) Pulse Ox O2 Delivery O2 Flow Rate FiO2 04/11/21 10:11 118 21 146/85 (105) 100 Nasal Cannula 5.0 04/11/21 07:00 97.1 97.1 Weight Weight [ ] Input and Output Intake and Output Intake and Output 04/11/21 07:00 Intake Total 250 ml Output Total 1225 ml Balance -975 ml Intake Oral 250 ml Output Urine Total 1225 ml Laboratory Labs Laboratory Tests Test 04/10/21 11:26 04/10/21 16:50 04/10/21 20:49 04/11/21 03:30 Glucose (Fingerstick) 150 mg/dL (70-99) 155 mg/dL (70-99) 140 mg/dL (70-99) White Blood Count 7.6 x10^3/uL (4.0-11.0) Red Blood Count 4.00 x10^6/uL (3.50-5.40) Hemoglobin 11.2 g/dL (12.0-15.5) Hematocrit 37.2 % (36.0-47.0) Mean Corpuscular Volume 93 fL (79-100) Mean Corpuscular Hemoglobin 28 pg (25-35) Mean Corpuscular Hemoglobin Concent 30 g/dL (31-37) Red Cell Distribution Width 14.7 % (11.5-14.5) Platelet Count 276 x10^3/uL (140-400) Neutrophils (%) (Auto) 73 % (31-73) Lymphocytes (%) (Auto) 16 % (24-48) Monocytes (%) (Auto) 10 % (0-9) Eosinophils (%) (Auto) 1 % (0-3) Basophils (%) (Auto) 0 % (0-3) Neutrophils # (Auto) 5.6 x10^3/uL (1.8-7.7) Lymphocytes # (Auto) 1.2 x10^3/uL (1.0-4.8) Monocytes # (Auto) 0.7 x10^3/uL (0.0-1.1) Eosinophils # (Auto) 0.1 x10^3/uL (0.0-0.7) Basophils # (Auto) 0.0 x10^3/uL (0.0-0.2) Sodium Level 145 mmol/L (136-145) Potassium Level 5.0 mmol/L (3.5-5.1) Chloride Level 106 mmol/L (98-107) Carbon Dioxide Level 33 mmol/L (21-32) Anion Gap 6 (6-14) Blood Urea Nitrogen 46 mg/dL (7-20) Creatinine 1.5 mg/dL (0.6-1.0) Estimated GFR (Cockcroft-Gault) 33.0 BUN/Creatinine Ratio 31 (6-20) Glucose Level 138 mg/dL (70-99) Calcium Level 9.1 mg/dL (8.5-10.1) Total Bilirubin 0.3 mg/dL (0.2-1.0) Aspartate Amino Transf (AST/SGOT) 24 U/L (15-37) Alanine Aminotransferase (ALT/SGPT) 17 U/L (14-59) Alkaline Phosphatase 79 U/L (46-116) Total Protein 6.9 g/dL (6.4-8.2) Albumin 3.0 g/dL (3.4-5.0) Albumin/Globulin Ratio 0.8 (1.0-1.7) Test 04/11/21 07:23 Glucose (Fingerstick) 126 mg/dL (70-99) Physical Exam HEENT: Neck Supple W Full Motion Chest: Symmetric LUNGS: Other (diminished bases) Heart: irregularly irregular (AFIB, rate mildly elevated ) Abdomen: Other (obese) Extremities: Other (1+ bilateral LE edema ) Neurology: other (somnolent ) Assessment Assessment 1. Acute respiratory failure with CHF, RVR 2. Acute on chronic probable diastolic CHF; improved s/p IV diuresis 3. PAFIB with RVR; on Cardizem gtt for rate control and Eliquis for stroke prophylaxis. Follows with [facility] cardiology. Rate mildly elevated 4. SSS s/p PPM (Medtronic). intermittent v-pacing 6. Hypertension; controlled 7. Hyperlipidemia; statin 8. MACK on CKD; improved s/p IVFs 9. Diabetes, II 10. Hyperthyroidism; on methimazole. 12. Encephalopathy with underlying dementia 13. Dysphagia Recommendations Patient unable to take oral Can use metoprolol IVP for rate control Family requesting Hospice consult. Supportive care Justicifation of Admission Dx: Justifications for Admission: Justification of Admission Dx: Yes CHF: Cardiac Arrhythmias YOU MOSES MD 04/12/21 1100: CARDIO Progress Notes Assessment Assessment Patient seen and examined on 04/11/2021. I agree with our nurse practitioners assessment and plan. Acute respiratory failure with CHF, RVR Acute on chronic probable diastolic CHF; improving s/p IV diuresis PAFIB with RVR; on Cardizem gtt for rate control and Eliquis for stroke prophylaxis. Follows with [facility] cardiology. Rate mildly elevated. Metoprolol IV for rate control if needed. SSS s/p PPM (Medtronic). intermittent v-pacing Hypertension; controlled Hyperlipidemia; statin MACK on CKD; improved s/p IVFs Diabetes, II Hyperthyroidism; on methimazole. Encephalopathy with underlying dementia Dysphagia MONICO BENAVIDEZ APRN Apr 11, 2021 10:34 YOU MOSES MD Apr 12, 2021 11:00
--- NOTE | 2021-04-11 10:49 | PDOC ---
[employer] PROGRESS NOTE Date of Service DOS: DATE: 04/11/21 TIME: 10:46 Chief Complaint Chief Complaint Acute respiratory failure with CHF, RVR 2. Acute on chronic probable diastolic CHF 3. PAFIB with RVR; on Cardizem gtt for rate control. Eliquis for stroke prophylaxis. Follows with [facility] cardiology. 4. SSS s/p PPM (Medtronic). intermittent v-pacing 6. Hypertension; controlled 7. Hyperlipidemia; statin 8. MACK on CKD 9. Diabetes, II 10. Hyperthyroidism; on methimazole. 12. Dementia History of Present Illness History of Present Illness 04/11/21 Patient seen and examined at beside, resting with NAD Will be going to SNU Chart reviewed Discussed with RN 04/10 renal fxn better to skilled, repeat COVID for clearance, she is better 04/09, cont to improv plan rehab on sunday renal fxn not fully improved with IV fluid yesterday, consult renal, give additional fluid today out of bed, PT and Ot to skilled soon, creatinine baseline 1.5 overdiuesed, cr upp to 2.4 will give a liter NS, hold lasix, delicate balance of cardiac and renal fxn try to DC to skilled tomrrow cont current Vitals/I&O Vitals/I&O: Vital Signs Date Time Temp Pulse Resp B/P (MAP) Pulse Ox O2 Delivery O2 Flow Rate FiO2 04/11/21 10:11 118 21 146/85 (105) 100 Nasal Cannula 5.0 04/11/21 07:00 97.1 97.1 I & O 04/10/21 04/10/21 04/11/21 15:00 23:00 07:00 Intake Total 0 ml 200 ml 50 ml Output Total 150 ml 250 ml 825 ml Balance -150 ml -50 ml -775 ml Physical Exam General: mild distress Heart: Other (Irregularly irregular) Lungs: Clear Abdomen: Normal bowel sounds Extremities: Other (2+ bilateral LE edema ) Skin: No rashes, No breakdown, No significant lesion Labs Labs: Laboratory Tests Test 04/10/21 11:26 04/10/21 16:50 04/10/21 20:49 04/11/21 03:30 Glucose (Fingerstick) 150 mg/dL (70-99) 155 mg/dL (70-99) 140 mg/dL (70-99) White Blood Count 7.6 x10^3/uL (4.0-11.0) Red Blood Count 4.00 x10^6/uL (3.50-5.40) Hemoglobin 11.2 g/dL (12.0-15.5) Hematocrit 37.2 % (36.0-47.0) Mean Corpuscular Volume 93 fL (79-100) Mean Corpuscular Hemoglobin 28 pg (25-35) Mean Corpuscular Hemoglobin Concent 30 g/dL (31-37) Red Cell Distribution Width 14.7 % (11.5-14.5) Platelet Count 276 x10^3/uL (140-400) Neutrophils (%) (Auto) 73 % (31-73) Lymphocytes (%) (Auto) 16 % (24-48) Monocytes (%) (Auto) 10 % (0-9) Eosinophils (%) (Auto) 1 % (0-3) Basophils (%) (Auto) 0 % (0-3) Neutrophils # (Auto) 5.6 x10^3/uL (1.8-7.7) Lymphocytes # (Auto) 1.2 x10^3/uL (1.0-4.8) Monocytes # (Auto) 0.7 x10^3/uL (0.0-1.1) Eosinophils # (Auto) 0.1 x10^3/uL (0.0-0.7) Basophils # (Auto) 0.0 x10^3/uL (0.0-0.2) Sodium Level 145 mmol/L (136-145) Potassium Level 5.0 mmol/L (3.5-5.1) Chloride Level 106 mmol/L (98-107) Carbon Dioxide Level 33 mmol/L (21-32) Anion Gap 6 (6-14) Blood Urea Nitrogen 46 mg/dL (7-20) Creatinine 1.5 mg/dL (0.6-1.0) Estimated GFR (Cockcroft-Gault) 33.0 BUN/Creatinine Ratio 31 (6-20) Glucose Level 138 mg/dL (70-99) Calcium Level 9.1 mg/dL (8.5-10.1) Total Bilirubin 0.3 mg/dL (0.2-1.0) Aspartate Amino Transf (AST/SGOT) 24 U/L (15-37) Alanine Aminotransferase (ALT/SGPT) 17 U/L (14-59) Alkaline Phosphatase 79 U/L (46-116) Total Protein 6.9 g/dL (6.4-8.2) Albumin 3.0 g/dL (3.4-5.0) Albumin/Globulin Ratio 0.8 (1.0-1.7) Test 04/11/21 07:23 Glucose (Fingerstick) 126 mg/dL (70-99) Assessment and Plan Assessmemt and Plan Assessment 1. Acute respiratory failure with CHF, RVR 2. Acute on chronic probable diastolic CHF 3. PAFIB with RVR 4. SSS s/p PPM (Medtronic). intermittent v-pacing 6. Hypertension; controlled 7. Hyperlipidemia; statin 8. MACK on CKD 9. Diabetes, II 10. Hyperthyroidism; on methimazole. 12. Dementia Plan D/c to [facility] gtt for rate control Eliquis for stroke prophylaxis Follows with [facility] cardiology Statin DNR Cont home meds Comment Review of Relevant I have reviewed the following items ian (where applicable) has been applied. Medications: Current Medications Medications (Trade) Dose Ordered Sig/Elena Route PRN Reason Start Time Stop Time Status Last Admin Dose Admin Furosemide (Lasix) 20 mg 1X ONCE IVP 04/10/21 16:45 04/10/21 16:46 DC 04/10/21 16:55 Justifications for Admission Other Justification Pneumonia and A. fib RVR SANTHOSH ADAMS III DO Apr 11, 2021 10:49
--- NOTE | 2021-04-11 11:26 | SNU/HH DC ---
DISCHARGE ORDERS DISCHARGE INFORMATION: DISCHARGE DATE: Apr 07, 2021 CONDITION ON DISCHARGE: Stable CODE STATUS: Code Status: DNR/DNI HALFWAY: SNF STAY <30 DAYS: No HOSPICE: HOSPICE: Yes HOSPICE EVAL & TREAT: Yes LTAC: ADMIT TO LTAC: No POST DISCHARGE ORDERS: ACTIVITY ORDERS: Other, see below WEIGHT BEARING STATUS: No restrictions, As tolerated BATHING ORDERS: Shower-keep dressing dry, No Tub Bath until see Dr. LIEBERMAN AFTER DISCHARGE: Regular WOUND/INCISION CARE: Ice to area for comfort, Keep wound/cast CDI, Keep wound elevated, Do not change dressing, Other, see below FOLLOW-UP: LAB ORDERS FOR FOLLOW-UP: chem 7, cbc in 5 days, creatinine baselne 1.5 TREATMENT/EQUIPMENT ORDERS: ADAPTIVE EQUIPMENT NEEDED: None RESPIRATORY EQUIPMENT NEEDED: Oxygen DISCHARGE MEDICATIONS: Home Meds Active Scripts Doxycycline Hyclate (DOXYCYCLINE HYCLATE) 100 Mg Tablet, 100 MG PO BID for COPD, #14 TAB Prov:RAQUEL CRISTOBAL MD 04/07/21 Reported Medications Ibandronate Sodium (IBANDRONATE SODIUM) 150 Mg Tablet, 1 TAB PO QMONTH for for 30 Days, #1 TAB 0 Refills 04/05/21 Methimazole (METHIMAZOLE) 5 Mg Tablet, 5 MG PO DAILY for , TAB 04/05/21 Sitagliptin Phosphate (JANUVIA) 100 Mg Tablet, 1 TAB PO DAILY for , #30 TAB 5 Refills 04/05/21 Diltiazem HCl (Diltiazem 24Hr Cd) 240 Mg Cap.er.24h, 240 MG PO DAILY for , CAP.SR 04/05/21 Calcium Carbonate (CALCIUM CARBONATE) 500 Mg Tablet, 1250 MG PO DAILY for for 30 Days, #75 TAB 0 Refills 04/05/21 Memantine Hcl (NAMENDA) 10 Mg Tablet, 5 MG PO BID for , TAB 04/05/21 Apixaban (ELIQUIS) 2.5 Mg Tablet, 2.5 MG PO BID for , TAB 04/05/21 Atorvastatin Calcium (ATORVASTATIN CALCIUM) 40 Mg Tablet, 1 TAB PO DAILY for , #30 TAB 5 Refills 04/05/21 Cholecalciferol (Vitamin D3) (Thera-D) 100 Mcg Tablet, 2000 UNITS PO DAILY for , TAB 04/05/21 Acetaminophen (ACETAMINOPHEN) 325 Mg Tablet, 2 TAB PO PRN Q4-6HRS PRN for pain or fever for 24 Days, #100 TAB 0 Refills 04/05/21 Furosemide (LASIX) 40 Mg Tablet, 40 MG PO BID for , TAB 04/05/21 Omeprazole (OMEPRAZOLE) 20 Mg Capsule.dr, 20 MG PO DAILY, CAP 05/11/14 Gabapentin (GABAPENTIN ) 300 Mg Capsule, 300 MG PO BID, CAP 05/11/14 Discontinued Reported Medications Ibuprofen (IBUPROFEN) 600 Mg Tablet, 600 MG PO BID, TAB 06/01/14 Tizanidine Hcl (TIZANIDINE HCL) 4 Mg Tablet, 2 MG PO HS PRN for MUSCLE SPASMS, TAB 05/11/14 Insulin Glargine,Hum.rec.anlog (LANTUS SOLOSTAR) 100 Unit/1 Ml Insuln.pen, 10 U NIT SQ QHS, ML 05/11/14 Losartan Potassium (LOSARTAN POTASSIUM) 50 Mg Tablet, 50 MG PO DAILY, TAB 05/11/14 Furosemide (FUROSEMIDE) 40 Mg Tablet, 40 MG PO DAILY, TAB 05/11/14 Atorvastatin Calcium (LIPITOR) 20 Mg Tablet, 20 MG PO HS for FOR CHOLESTEROL, TAB 0 Refills 05/11/14 Pioglitazone Hcl (ACTOS) 30 Mg Tablet, 30 MG PO DAILY, TAB 05/11/14 Metformin Hcl (METFORMIN HCL) 1,000 Mg Tablet, 1000 MG PO DAILYWBKFT for ANTI- DIABETIC, TAB 0 Refills 05/11/14 SANTHOSH ADAMS III DO Apr 11, 2021 11:26
--- NOTE | 2021-04-11 12:12 | PDOC ---
Renal-Progress Notes Subjective Notes Notes NO NEW COMPLAINTS History of Present Illness Hx of present illness SOMNOLENT WITH SOME CONFUSION Vitals Vitals Vital Signs Date Time Temp Pulse Resp B/P (MAP) Pulse Ox O2 Delivery O2 Flow Rate FiO2 04/11/21 10:11 118 21 146/85 (105) 100 Nasal Cannula 5.0 04/11/21 07:00 97.1 97.1 Weight Weight [ ] I.O. Intake and Output Intake and Output 04/11/21 07:00 Intake Total 250 ml Output Total 1225 ml Balance -975 ml Intake Oral 250 ml Output Urine Total 1225 ml Labs Labs Laboratory Tests Test 04/10/21 16:50 04/10/21 20:49 04/11/21 03:30 04/11/21 07:23 Glucose (Fingerstick) 155 mg/dL (70-99) 140 mg/dL (70-99) 126 mg/dL (70-99) White Blood Count 7.6 x10^3/uL (4.0-11.0) Red Blood Count 4.00 x10^6/uL (3.50-5.40) Hemoglobin 11.2 g/dL (12.0-15.5) Hematocrit 37.2 % (36.0-47.0) Mean Corpuscular Volume 93 fL (79-100) Mean Corpuscular Hemoglobin 28 pg (25-35) Mean Corpuscular Hemoglobin Concent 30 g/dL (31-37) Red Cell Distribution Width 14.7 % (11.5-14.5) Platelet Count 276 x10^3/uL (140-400) Neutrophils (%) (Auto) 73 % (31-73) Lymphocytes (%) (Auto) 16 % (24-48) Monocytes (%) (Auto) 10 % (0-9) Eosinophils (%) (Auto) 1 % (0-3) Basophils (%) (Auto) 0 % (0-3) Neutrophils # (Auto) 5.6 x10^3/uL (1.8-7.7) Lymphocytes # (Auto) 1.2 x10^3/uL (1.0-4.8) Monocytes # (Auto) 0.7 x10^3/uL (0.0-1.1) Eosinophils # (Auto) 0.1 x10^3/uL (0.0-0.7) Basophils # (Auto) 0.0 x10^3/uL (0.0-0.2) Sodium Level 145 mmol/L (136-145) Potassium Level 5.0 mmol/L (3.5-5.1) Chloride Level 106 mmol/L (98-107) Carbon Dioxide Level 33 mmol/L (21-32) Anion Gap 6 (6-14) Blood Urea Nitrogen 46 mg/dL (7-20) Creatinine 1.5 mg/dL (0.6-1.0) Estimated GFR (Cockcroft-Gault) 33.0 BUN/Creatinine Ratio 31 (6-20) Glucose Level 138 mg/dL (70-99) Calcium Level 9.1 mg/dL (8.5-10.1) Total Bilirubin 0.3 mg/dL (0.2-1.0) Aspartate Amino Transf (AST/SGOT) 24 U/L (15-37) Alanine Aminotransferase (ALT/SGPT) 17 U/L (14-59) Alkaline Phosphatase 79 U/L (46-116) Total Protein 6.9 g/dL (6.4-8.2) Albumin 3.0 g/dL (3.4-5.0) Albumin/Globulin Ratio 0.8 (1.0-1.7) Test 04/11/21 11:31 Glucose (Fingerstick) 135 mg/dL (70-99) Review of Systems Constitutional: yes: other (CONFUSED) Physical Exam General Appearance: no apparent distress Skin: warm Respiratory: decreased breath sounds Heart: S1S2 Abdomen: soft, bowel sounds present Genitourinary: bladder flat Extremities: pulses present, edema Neurology: alert, follow commands Musculoskeletal: Osteoarthritis Assessment Assessment IMP MACK-IMPROVED CR OF 1.5 FROM 2.4 CKD STAGE 3B WITH CR BASELINE ABOUT 1.5 ACUTE RESP FAILURE PAFIB WITH RVR HX HTN DM II DEMENTIA PLAN STOP IVF LASIX LABS IN AM WILL FOLLOW ISABELLA ESPINAL MD Apr 11, 2021 12:12
[2021-04-11] MEDS ORDERED: FUROSEMIDE 40 MG/4 ML VIAL. IVP ONE (12:15)
[2021-04-11] MEDS: cefTRIAXone IV Push 1 GM VIAL. IVP SCH (14:33)
[2021-04-11] MEDS: METOPROLOL IV PUSH 5 MG/5 ML VIAL. IVP SCH (16:55)
--- NOTE | 2021-04-11 19:36 | DS ---
DATE OF DISCHARGE: 04/11/2021 ADMISSION DIAGNOSES: Pneumonia, atrial fibrillation with rapid ventricular response, failure to thrive, obesity, diabetes, gastroesophageal reflux disease, hypertension. DISCHARGE DIAGNOSES: Probable failure to thrive (she has been discharged with hospice). CONSULTS: Cardiology and Nephrology. PROCEDURES: None. HOSPITAL COURSE: The patient is a pleasant elderly female who presented with pneumonia and atrial fibrillation with RVR and heart failure. She was admitted. We gave her IV antibiotics and consult and the above consults were obtained. Over the past few days, she is decompensated. I spoke with the mental health case manager. This morning, apparently the hospice has been arranged. I did see and examine her. She is resting, with no apparent distress. We plan to discharge. DISPOSITION: Home with hospice. ACTIVITY: Bed rest. DIET: Pleasure feeds. MEDICATIONS: Comfort meds per the hospice team. TOTAL TIME: [address]: Greg TID: [id number]
[2021-04-11] MEDS: ATORVASTATIN CALCIUM 40 MG TABLET. PO SCH (20:49)
[2021-04-11] MEDS ORDERED: CEFDINIR 300 MG CAPSULE PO SCH (21:00)
[2021-04-12] MEDS: METOPROLOL IV PUSH 5 MG/5 ML VIAL. IVP SCH ×3 (00:05→11:52)
[2021-04-12 02:49] VITALS: BP 94/65
--- NOTE | 2021-04-12 04:44 | NUR ---
Patient was agitated and kept pulling mask off stating "I don't want it." Oxygen saturation dropped to 84%. Ativan given SIVP for agitation at 0415. Bipap taken off and O2 at 4 liters nasal placed on Patient. Patient calmer and resting with oxygen per nasal cannula in place. Oxygen saturation at 92%.
[2021-04-12 06:43] LABS: CALCIUM 9.4 mg/dL (8.5-10.1); CREATININE 1.3 mg/dL (0.6-1.0); GFR 38.9; POTASSIUM 4.2 mmol/L (3.5-5.1)
[2021-04-12 07:00] VITALS: BP 124/71
[2021-04-12] MEDS: PANTOPRAZOLE 40 MG TABLET.DR. PO SCH (07:30)
[2021-04-12] MEDS: INSULIN LISPRO 300 UNITS/3 ML VIAL. SQ SCH ×2 (08:00→11:53)
--- NOTE | 2021-04-12 08:14 | PDOC ---
CARDIO Progress Notes Date and Time Date of Service 04/12/21 Time of Evaluation 1045 Subjective Subjective: Other (not obtainable ) Vitals Vitals Vital Signs Date Time Temp Pulse Resp B/P (MAP) Pulse Ox O2 Delivery O2 Flow Rate FiO2 04/12/21 07:00 97.6 121 21 124/71 (88) 94 Nasal Cannula 5.0 97.6 Weight Weight [ ] Input and Output Intake and Output Intake and Output 04/12/21 06:59 Intake Total 120 ml Output Total 2125 ml Balance -2005 ml Intake Oral 120 ml Output Urine Total 2125 ml Laboratory Labs Laboratory Tests Test 04/11/21 11:31 04/11/21 16:40 04/11/21 20:48 04/12/21 04:20 Glucose (Fingerstick) 135 mg/dL (70-99) 159 mg/dL (70-99) 157 mg/dL (70-99) Sodium Level 146 mmol/L (136-145) Potassium Level 4.2 mmol/L (3.5-5.1) Chloride Level 106 mmol/L (98-107) Carbon Dioxide Level 33 mmol/L (21-32) Anion Gap 7 (6-14) Blood Urea Nitrogen 43 mg/dL (7-20) Creatinine 1.3 mg/dL (0.6-1.0) Estimated GFR (Cockcroft-Gault) 38.9 Glucose Level 138 mg/dL (70-99) Calcium Level 9.4 mg/dL (8.5-10.1) Magnesium Level 2.0 mg/dL (1.8-2.4) Review of Systems Constitutional: yes: other (CONFUSED) Physical Exam HEENT: Neck Supple W Full Motion Chest: Symmetric LUNGS: Other (diminished bases) Heart: irregularly irregular (AFIB, rate mildly elevated ) Abdomen: Other (obese) Extremities: Other (1+ bilateral LE edema ) Neurology: other (somnolent ) Assessment Assessment 1. Acute respiratory failure with CHF, RVR 2. Acute on chronic probable diastolic CHF; improved s/p IV diuresis 3. PAFIB with RVR; on Cardizem gtt for rate control and Eliquis for stroke prophylaxis. Rate elevated. s/p IV Dig this am 4. SSS s/p PPM (Medtronic). intermittent v-pacing 6. Hypertension; controlled 7. Hyperlipidemia; statin 8. MACK on CKD; improved s/p IVFs 9. Diabetes, II 10. Hyperthyroidism; on methimazole. 12. Encephalopathy with underlying dementia 13. Dysphagia Recommendations Supportive care Plans for discharge with Hospice Justicifation of Admission Dx: Justifications for Admission: Justification of Admission Dx: Yes CHF: Cardiac Arrhythmias MONICO BENAVIDEZ APRN Apr 12, 2021 08:14
[2021-04-12] MEDS ORDERED: DIGOXIN IV 500 MCG/2 ML AMPUL. IV ONE (08:15)
[2021-04-12] MEDS: CHOLECALCIFEROL (VITAMIN D3) 1,000 UNIT TABLET PO SCH (09:00)
[2021-04-12] MEDS: GABAPENTIN 300 MG CAPSULE. PO SCH (09:00)
[2021-04-12] MEDS: DOXYCYCLINE HYCLATE 100 MG TABLET PO SCH (09:00)
[2021-04-12] MEDS: APIXABAN 2.5 MG TABLET. PO SCH (09:00)
[2021-04-12] MEDS: LACTOBACILLUS RHAMNOSUS GG 1 CAPSULE. PO SCH (09:00)
[2021-04-12] MEDS: CALCIUM CARBONATE 500 MG TABLET PO SCH (09:00)
--- NOTE | 2021-04-12 09:00 | NUR ---
Pt refusing to eat or drink. Refused am medications. Cont. encourage and offer fluids/food frequently.
[2021-04-12 10:21] VITALS: BP 163/79
--- NOTE | 2021-04-12 10:47 | NUR ---
SS following up with discharge planning. SS reviewed pt chart and discussed with pt RN. BPCI. Pt is currently requiring oxygen at five liters nasal canula. Pt's family requesting hospice services with [facility], ; fax [phone]. SS was notified that referral was sent yesterday. SS contacted Juventino at [facility] and was notified that they are still awaiting additional clinical information requested yesterday. SS phoned and faxed information as requested. Dr. Enriquez discussed with family and medical cost consultant at [facility]. Pt accepted on services with [facility]. Discharge orders phoned and faxed to [facility]. DME being delivered today. Pt will discharge today and return to home with [facility] at 1400 vis [facility] ambulance, . Packet, ambulance form, and outside the hospital DNR placed on the chart. Pt's RN notified.
--- NOTE | 2021-04-12 10:50 | PDOC ---
[employer] PROGRESS NOTE Date of Service DOS: DATE: 04/12/21 TIME: 10:48 Chief Complaint Chief Complaint Acute respiratory failure with CHF, RVR 2. Acute on chronic probable diastolic CHF 3. PAFIB with RVR; on Cardizem gtt for rate control. Eliquis for stroke prophylaxis. Follows with [facility] cardiology. 4. SSS s/p PPM (Medtronic). intermittent v-pacing 6. Hypertension; controlled 7. Hyperlipidemia; statin 8. MACK on CKD 9. Diabetes, II 10. Hyperthyroidism; on methimazole. 12. Dementia History of Present Illness History of Present Illness 04/12/2021 Patient seen and examined at beside, resting in NAD Plan to discharge today to home hospice Discussed with RN Chart reviewed 04/11/21 Patient seen and examined at beside, resting with NAD Will be going to SNU Chart reviewed Discussed with RN 04/10 renal fxn better to skilled, repeat COVID for clearance, she is better 04/09, cont to improv plan rehab on sunday renal fxn not fully improved with IV fluid yesterday, consult renal, give additional fluid today out of bed, PT and Ot to skilled soon, creatinine baseline 1.5 overdiuesed, cr upp to 2.4 will give a liter NS, hold lasix, delicate balance of cardiac and renal fxn try to DC to skilled tomrrow cont current Vitals/I&O Vitals/I&O: Vital Signs Date Time Temp Pulse Resp B/P (MAP) Pulse Ox O2 Delivery O2 Flow Rate FiO2 04/12/21 10:21 97.6 97 20 163/79 (107) 93 Nasal Cannula 5.0 97.6 I & O 04/11/21 04/11/21 04/12/21 15:00 23:00 07:00 Intake Total 120 ml 0 ml Output Total 500 ml 500 ml 1125 ml Balance -500 ml -380 ml -1125 ml Physical Exam General: mild distress Heart: Other (Irregularly irregular) Lungs: Clear Abdomen: Normal bowel sounds Extremities: Other (2+ bilateral LE edema ) Skin: No rashes, No breakdown, No significant lesion Labs Labs: Laboratory Tests Test 04/11/21 11:31 04/11/21 16:40 04/11/21 20:48 04/12/21 04:20 Glucose (Fingerstick) 135 mg/dL (70-99) 159 mg/dL (70-99) 157 mg/dL (70-99) Sodium Level 146 mmol/L (136-145) Potassium Level 4.2 mmol/L (3.5-5.1) Chloride Level 106 mmol/L (98-107) Carbon Dioxide Level 33 mmol/L (21-32) Anion Gap 7 (6-14) Blood Urea Nitrogen 43 mg/dL (7-20) Creatinine 1.3 mg/dL (0.6-1.0) Estimated GFR (Cockcroft-Gault) 38.9 Glucose Level 138 mg/dL (70-99) Calcium Level 9.4 mg/dL (8.5-10.1) Magnesium Level 2.0 mg/dL (1.8-2.4) Assessment and Plan Assessmemt and Plan Assessment 1. ARF with CHF, RVR 2. Acute on chronic probable diastolic CHF 3. PAFIB with RVR 4. SSS s/p PPM (Medtronic). intermittent v-pacing 6. Hypertension; controlled 7. Hyperlipidemia; statin 8. MACK on CKD 9. Diabetes, II 10. Hyperthyroidism; on methimazole. 12. Dementia Plan Discharge to home hospice [facility] gtt for rate control Eliquis for stroke prophylaxis Follows with [facility] cardiology Statin DNR Cont home meds Comment Review of Relevant I have reviewed the following items ian (where applicable) has been applied. Medications: Current Medications Medications (Trade) Dose Ordered Sig/Elena Route PRN Reason Start Time Stop Time Status Last Admin Dose Admin Furosemide (Lasix) 40 mg 1X ONCE IVP 04/11/21 12:15 04/11/21 12:16 DC 04/11/21 14:34 Metoprolol Tartrate (Lopressor Vial) 5 mg Q6HRS IVP 04/11/21 18:00 04/12/21 05:49 Digoxin (Lanoxin) 500 mcg 1X ONCE IV 04/12/21 08:15 04/12/21 08:16 DC 04/12/21 09:19 Justifications for Admission Other Justification Pneumonia and A. fib RVR SANTHOSH ADAMS III DO Apr 12, 2021 10:50
--- NOTE | 2021-04-12 11:46 | PDOC ---
Renal-Progress Notes Subjective Notes Notes NONE History of Present Illness Hx of present illness SOMNOLENT Vitals Vitals Vital Signs Date Time Temp Pulse Resp B/P (MAP) Pulse Ox O2 Delivery O2 Flow Rate FiO2 04/12/21 10:21 97.6 97 20 163/79 (107) 93 Nasal Cannula 5.0 97.6 Weight Weight [ ] I.O. Intake and Output Intake and Output 04/12/21 07:00 Intake Total 120 ml Output Total 2125 ml Balance -2005 ml Intake Oral 120 ml Output Urine Total 2125 ml Labs Labs Laboratory Tests Test 04/11/21 16:40 04/11/21 20:48 04/12/21 04:20 04/12/21 11:18 Glucose (Fingerstick) 159 mg/dL (70-99) 157 mg/dL (70-99) 164 mg/dL (70-99) Sodium Level 146 mmol/L (136-145) Potassium Level 4.2 mmol/L (3.5-5.1) Chloride Level 106 mmol/L (98-107) Carbon Dioxide Level 33 mmol/L (21-32) Anion Gap 7 (6-14) Blood Urea Nitrogen 43 mg/dL (7-20) Creatinine 1.3 mg/dL (0.6-1.0) Estimated GFR (Cockcroft-Gault) 38.9 Glucose Level 138 mg/dL (70-99) Calcium Level 9.4 mg/dL (8.5-10.1) Magnesium Level 2.0 mg/dL (1.8-2.4) Review of Systems Constitutional: yes: other (CONFUSED) Physical Exam General Appearance: no apparent distress Skin: warm Respiratory: decreased breath sounds Heart: S1S2 Abdomen: soft, bowel sounds present Genitourinary: bladder flat Extremities: pulses present, edema Neurology: other (somnolent ) Musculoskeletal: Osteoarthritis Assessment Assessment IMP MACK-IMPROVED CR OF 1.3 FROM 2.4 CKD STAGE 3B WITH CR BASELINE ABOUT 1.5 MILD HYPERNATREMIA ACUTE RESP FAILURE PAFIB WITH RVR HX HTN DM II DEMENTIA PLAN OFF IVF CARDIOLOGY EVAL AND TX LABS IN AM WILL FOLLOW ISABELLA ESPINAL MD Apr 12, 2021 11:46
[2021-04-12 14:27] VITALS: BP 133/72
--- NOTE | 2021-04-12 15:40 | NUR ---
Pt discharge to home with hospice. Transferred by EMS.
--- NOTE | 2021-04-12 16:18 | NUR ---
Spoke with Danielle Paul from [facility] gave report.
== END 2021-04-12 15:44 | disposition hospice, home (50) | DRG 193 ==
LOC: 6 SOUTH 00:53
PROVIDERS: ADMIT Student in an Organized Health Care Education/Training Program; ATTEND Student in an Organized Health Care Education/Training Program
DX: J18.9 Pneumonia, unspecified organism (principal); J96.00 Acute respiratory failure, unspecified whether with hypoxia or hypercapnia; I50.33 Acute on chronic diastolic (congestive) heart failure; R65.11 Systemic inflammatory response syndrome (SIRS) of non-infectious origin with acute organ dysfunction; N17.0 Acute kidney failure with tubular necrosis; E87.0 Hyperosmolality and hypernatremia; G93.40 Encephalopathy, unspecified; I13.0 Hypertensive heart and chronic kidney disease with heart failure and stage 1 through stage 4 chronic kidney disease, or unspecified chronic kidney disease; E05.90 Thyrotoxicosis, unspecified without thyrotoxic crisis or storm; E11.22 Type 2 diabetes mellitus with diabetic chronic kidney disease; E66.01 Morbid (severe) obesity due to excess calories; E78.5 Hyperlipidemia, unspecified; F03.90 Unspecified dementia, unspecified severity, without behavioral disturbance, psychotic disturbance, mood disturbance, and anxiety; I25.10 Atherosclerotic heart disease of native coronary artery without angina pectoris; I48.0 Paroxysmal atrial fibrillation; I49.5 Sick sinus syndrome; M19.90 Unspecified osteoarthritis, unspecified site; R79.89 Other specified abnormal findings of blood chemistry; E87.5 Hyperkalemia; Z66 Do not resuscitate; K21.9 Gastro-esophageal reflux disease without esophagitis; N18.32 Chronic kidney disease, stage 3b; R13.10 Dysphagia, unspecified; R62.7 Adult failure to thrive; Z79.01 Long term (current) use of anticoagulants; Z87.891 Personal history of nicotine dependence; Z90.710 Acquired absence of both cervix and uterus; Z95.0 Presence of cardiac pacemaker; Z88.5 Allergy status to narcotic agent; Z88.2 Allergy status to sulfonamides; Z88.7 Allergy status to serum and vaccine; Z88.8 Allergy status to other drugs, medicaments and biological substances; Z90.49 Acquired absence of other specified parts of digestive tract; Z20.822 Contact with and (suspected) exposure to COVID-19
CPT/HCPCS: 36415; 71045; 71046; 80048; 80053; 82962; 83735; 84100; 84443; 85025; 87449; 87641; 93308; 93321; 93325; 94660; J0696; J1160; J1940; J2060; J3490; J7030; J7060; U0003; 97116-GP; 97535-GO; G0378